=== PATIENT | female | born 1940 | race Caucasian/White ===

== ENCOUNTER 2018-10-26 16:10 | Inpatient (IN) | payer MEDICARE ==
[2018-10-26] MEDS ORDERED: Sodium Chloride 0.9% 1,000 ML IV STA (16:58)
--- NOTE | 2018-10-26 17:16 | ED PDOC ---
HPI: Trauma/Fall - HPI Time Seen by Provider: 10/26/18 16:37 Chief Complaint (Nursing): Trauma Chief Complaint (Provider): Fall History Per: Family History/Exam Limitations: clinical condition (dementia) Onset/Duration Of Symptoms: Unknown Location Of Injury: Right: Shoulder Additional Complaint(s): 78yo female with dementia at baseline, brought to ER by daughter for evaluation after patient was found on the floor next to her bed last night by her . History obtained from daughter as patient is unable to provide information; per daughter patient was down for an unknown amount of time. She states the patient was awake when found on the floor. Currently, she states the patient is complaining of right shoulder pain. Full HPI and ROS limited due to clinical condition. PMD: Dr. Broussard Past Medical History Reviewed: Historical Data, Nursing Documentation, Vital Signs Vital Signs: Last Vital Signs Temp 97.3 F L 10/26/18 16:14 Pulse 74 10/26/18 16:14 Resp 18 10/26/18 16:14 BP 152/80 H 10/26/18 16:14 Pulse Ox 100 10/26/18 16:14 - Medical History PMH: Anxiety, CVA, Dementia, Hypercholesterolemia Denies: HIV, Chronic Kidney Disease - Surgical History Surgical History: No Surg Hx - Family History Family History: States: No Known Family Hx - Immunization History Hx Tetanus Toxoid Vaccination: No Hx Influenza Vaccination: No - Home Medications Home Medications: Ambulatory Orders Medication Instructions Recorded Aspirin [Ecotrin] 81 mg PO HS 10/26/18 Calcium Carbonate/Vitamin D3 1 tab PO BID 10/26/18 [Calcium 500-Vit D3 400 Tablet] Folic Acid 1 mg PO DAILY 10/26/18 Loratadine [Claritin] 10 mg PO HS 10/26/18 Rosuvastatin Calcium [Crestor] 20 mg PO DAILY 10/26/18 Thiamine [Vitamin B1 Tab] 100 mg PO DAILY 10/26/18 metFORMIN [glucOPHAGE] 500 mg PO DAILY 10/26/18 - Allergies Allergies/Adverse Reactions: Allergies Allergy/AdvReac Type Severity Reaction Status Date / Time No Known Allergies Allergy Verified 10/26/18 16:14 Review of Systems Review Of Systems: ROS cannot be obtained secondary to pt's inabilty to answer questions. Musculoskeletal: Positive for: Shoulder Pain (right) Neurological: Positive for: Other (fall) Physical Exam - Reviewed Nursing Documentation Reviewed: Yes Vital Signs Reviewed: Yes - Physical Exam Appears: Positive for: Non-toxic Head Exam: Positive for: ATRAUMATIC, NORMAL INSPECTION, NORMOCEPHALIC Skin: Positive for: Normal Color Eye Exam: Positive for: Normal appearance, EOMI, PERRL Neck: Positive for: Supple Cardiovascular/Chest: Positive for: Regular Rate, Rhythm. Negative for: Murmur, Tachycardia Respiratory: Positive for: Normal Breath Sounds. Negative for: Wheezing, Respiratory Distress Pulses-Radial (L): 2+ Pulses-Radial (R): 2+ Gastrointestinal/Abdominal: Positive for: Soft. Negative for: Guarding, Rebound Back: Negative for: L CVA Tenderness, R CVA Tenderness Extremity: Positive for: Capillary Refill (< 2 seconds). Negative for: Normal ROM (+ limited ROM of right shoulder due to pain), Deformity, Swelling (right shoulder) Neurological/Psych: Positive for: Awake, Alert - Laboratory Results Result Diagrams: 10/27/18 06:31 10/27/18 06:31 - ECG O2 Sat by Pulse Oximetry: 100 (RA) Pulse Ox Interpretation: Normal Medical Decision Making Medical Decision Making: Impression: fall, syncope Differential: head injury, shoulder injury, UTI, cardiac arrhythmia, intra- cranial bleed, r/o rhabdomylosis Plan: -- Labs -- Urinalysis -- CT head w/o contrast -- IV Fluids 1745 CXR FINDINGS: LUNGS: The lungs are well inflated and clear. PLEURA: No pneumothorax or pleural effusion. CARDIOVASCULAR: The heart is normal in size. No aortic atherosclerotic calcifications present. OSSEOUS STRUCTURES: Within normal limits for the patient's age. Status post right shoulder arthroplasty. VISUALIZED UPPER ABDOMEN: Normal. OTHER FINDINGS: None. IMPRESSION: No active pulmonary disease. No acute findings. 1849 CT Head FINDINGS: HEMORRHAGE: No intracranial hemorrhage. BRAIN: Marcial-white matter differentiation is preserved. There is no mass, mass effect or abnormal extra-axial fluid collection. There is no territorial infarction. The midline sagittal structures are normal.There are coarse atherosclerotic calcifications in the cavernous carotid arteries. VENTRICLES: There is mild age-related global parenchymal volume loss and proportionate enlargement of and cortical sulci. Ventricular dilatation is out of proportion to sulcal prominence. CALVARIUM: There is no calvarial fracture or extracranial soft tissue swelling. PARANASAL SINUSES: Predominantly clear. MASTOID AIR CELLS: Predominantly clear. OTHER FINDINGS: None. IMPRESSION: No acute intracranial abnormality. Mild chronic microangiopathic changes and mild age-related global parenchymal volume loss. Ventricular dilatation is out of proportion to sulcal prominence and normal pressure hydrocephalus should be considered. Clinical follow-up is advised. Labs reviewed, patient with elevated CPK [address] Broussard for admission for Syncope and rhabdomyolysis. 20:57 Right shoulder x-ray FINDINGS: BONES: No acute fracture or aggressive appearing osseous lesion. An approximately 3.5 by 0.7 cm exophytic spur is noted along the proximal medial cortex of the humeral shaft. This is thought compatible with an osteochondroma. JOINTS: No dislocation. A reverse total shoulder arthroplasty remains unchanged in position without evidence of a complicating process. The acromioclavicular joint appears adequately maintained. SOFT TISSUES: The soft tissues are unremarkable. IMPRESSION: 1. No acute abnormality evident on examination of the right shoulder. No acute fracture or dislocation. 2. A total reversed right shoulder arthroplasty remains unchanged in position without evidence of a complicating process. 3. 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 This finding is thought to have developed during the interval since the prior examination. Scribe Attestation: Documented by Karen Bear acting as a scribe for Luis Nguyen MD Provider Scribe Attestation: All medical record entries made by the Scribe were at my direction and personally dictated by me. I have reviewed the chart and agree that the record accurately reflects my personal performance of the history, physical exam, medical decision making, and the department course for this patient. I have also personally directed, reviewed, and agree with the discharge instructions and disposition. Disposition - Clinical Impression Clinical Impression: Syncope, Rhabdomyolysis - Patient ED Disposition Is Patient to be Admitted: Yes Discussed With DrGermaine: Jim Broussard Doctor Will See Patient In The: Hospital Counseled Patient/Family Regarding: Studies Performed, Diagnosis - Disposition Disposition Time: 18:00 Condition: FAIR - Pt Status Changed To: Hospital Disposition Of: Observation - POA Present On Arrival: Falls Or Trauma
--- NOTE | 2018-10-26 17:50 | RAD ---
Date of service: 10/26/2018 PROCEDURE: CHEST RADIOGRAPH, 1 VIEW HISTORY: fall COMPARISON: 02/13/2017 FINDINGS: LUNGS: The lungs are well inflated and clear. PLEURA: No pneumothorax or pleural effusion. CARDIOVASCULAR: The heart is normal in size. No aortic atherosclerotic calcifications present. OSSEOUS STRUCTURES: Within normal limits for the patient's age. Status post right shoulder arthroplasty. VISUALIZED UPPER ABDOMEN: Normal. OTHER FINDINGS: None. IMPRESSION: No active pulmonary disease. No acute findings.
[2018-10-26 18:22] LABS: BASO # 0.1 K/uL (0.0-0.2); BASO % 0.8 % (0.0-2.0); EOS % 0.2 % (0.0-4.0); HEMOGLOBIN 12.4 g/dL (12.0-16.0); LYMPH # 1.7 K/uL (1.0-4.3); LYMPH % 15.2 % (20.0-40.0); MEAN CELL VOLUME 76.8 fl (81.0-99.0); MEAN CORPUSCULAR HEMOGLOBIN 25.6 pg (27.0-31.0); MEAN CORPUSCULAR HGB CONC 33.3 g/dL (33.0-37.0); MEAN PLATELET VOLUME 9.5 fl (7.2-11.7); MONO # 0.8 K/uL (0.0-0.8); MONO % 6.8 % (0.0-10.0); NEUT # 8.5 K/uL (1.8-7.0); NRBC % 0.1 % (0.0-0.0); RBC 4.84 Mil/uL (3.80-5.20); RED CELL DISTRIBUTION WIDTH 14.1 % (11.5-14.5); WHITE BLOOD COUNT 11.1 K/uL (4.8-10.8)
[2018-10-26 18:29] LABS: BLOOD UREA NITROGEN 18 mg/dl (7-17); CALCIUM 9.6 mg/dL (8.4-10.2); GFR NON-AFRICAN AMERICAN > 60
--- NOTE | 2018-10-26 18:29 | CT ---
Date of service: 10/26/2018 PROCEDURE: CT HEAD WITHOUT CONTRAST. HISTORY: fall head injury COMPARISON: None available. TECHNIQUE: Axial computed tomography images were obtained through the head/brain without intravenous contrast. Radiation dose: Total exam DLP = 756.51 mGy-cm. This CT exam was performed using one or more of the following dose reduction techniques: Automated exposure control, adjustment of the mA and/or kV according to patient size, and/or use of iterative reconstruction technique. FINDINGS: HEMORRHAGE: No intracranial hemorrhage. BRAIN: Marcial-white matter differentiation is preserved. There is no mass, mass effect or abnormal extra-axial fluid collection. There is no territorial infarction. The midline sagittal structures are normal.There are coarse atherosclerotic calcifications in the cavernous carotid arteries. VENTRICLES: There is mild age-related global parenchymal volume loss and proportionate enlargement of and cortical sulci. Ventricular dilatation is out of proportion to sulcal prominence. CALVARIUM: There is no calvarial fracture or extracranial soft tissue swelling. PARANASAL SINUSES: Predominantly clear. MASTOID AIR CELLS: Predominantly clear. OTHER FINDINGS: None. IMPRESSION: No acute intracranial abnormality. Mild chronic microangiopathic changes and mild age-related global parenchymal volume loss. Ventricular dilatation is out of proportion to sulcal prominence and normal pressure hydrocephalus should be considered. Clinical follow-up is advised.
[2018-10-26 21:06] LABS: ALB/GLOB RATIO 1.2 (1.0-2.1); ALBUMIN 4.3 g/dL (3.5-5.0); BILIRUBIN,DIRECT 0.2 mg/ml (0.0-0.4)
[2018-10-26 21:33] LABS: SQUAMOUS EPITHIAL 3 /hpf (0-5); URINE BACTERIA RARE (<OCC); URINE BILIRUBIN NEGATIVE (NEGATIVE); URINE BLOOD NEGATIVE (NEGATIVE); URINE CLARITY CLEAR (Clear); URINE COLOR YELLOW (YELLOW); URINE GLUCOSE (UA) NEG (NEGATIVE); URINE LEUKOCYTE ESTERASE TRACE Leu/uL (Negative); URINE PROTEIN NEGATIVE (NEGATIVE); URINE UROBILINOGEN 0.2-1.0 mg/dL (0.2-1.0)
[2018-10-26 23:10] VITALS: BMI 27.6
[2018-10-27 06:41] LABS: BASO # 0.1 K/uL (0.0-0.2); BASO % 1.2 % (0.0-2.0); EOS % 0.5 % (0.0-4.0); HEMOGLOBIN 11.5 g/dL (12.0-16.0); LYMPH # 1.8 K/uL (1.0-4.3); LYMPH % 19.2 % (20.0-40.0); MEAN CELL VOLUME 77.3 fl (81.0-99.0); MEAN CORPUSCULAR HEMOGLOBIN 25.5 pg (27.0-31.0); MEAN PLATELET VOLUME 9.3 fl (7.2-11.7); MONO # 0.7 K/uL (0.0-0.8); NEUT # 6.8 K/uL (1.8-7.0); NEUT % 72.1 % (50.0-75.0); RBC 4.49 Mil/uL (3.80-5.20); RED CELL DISTRIBUTION WIDTH 14.1 % (11.5-14.5); WHITE BLOOD COUNT 9.4 K/uL (4.8-10.8)
[2018-10-27 06:50] LABS: BLOOD UREA NITROGEN 20 mg/dl (7-17); CALCIUM 9.3 mg/dL (8.4-10.2); GFR NON-AFRICAN AMERICAN > 60
[2018-10-27] MEDS: Cholecalciferol 400 Intl Units Tab PO SCH ×2 (08:52→17:05)
[2018-10-27] MEDS: Enoxaparin 40 mg Syringe SC SCH (08:53)
--- NOTE | 2018-10-27 11:10 | CARD ---
APPROVED REPORT Date of service: 10/26/2018 EKG Measurement Heart [id number] <Conclusion> Normal sinus rhythm Normal ECG
--- NOTE | 2018-10-27 12:55 | CP.PCM.HP ---
History of Present Illness - History of Present Illness History of Present Illness: 78yo female with dementia at baseline, brought to ER by daughter for evaluation after patient was found on the floor next to her bed last night by her . As per daughter patient was down for an unknown amount of time. She states the patient was awake when found on the floor. Currently, she states the patient is complaining of right shoulder pain. Patient presented with new findings that suggest possibility of spinal cord pathology or new onset of ischemic cerebral condition. She has new onset of severe lower limb weakness. MRI and neuro consult pending. She is more confuse than her usual mental status. Present on Admission - Present on Admission Any Indicators Present on Admission: No Review of Systems - Review of Systems Systems not reviewed;Unavailable: Altered Mental Status - Constitutional Constitutional: Weakness - EENT Eyes: As Per HPI - Cardiovascular Cardiovascular: As Per HPI - Respiratory Respiratory: As Per HPI - Gastrointestinal Gastrointestinal: As Per HPI - Musculoskeletal Musculoskeletal: Abnormal Gait, Muscle Weakness, Myalgias - Integumentary Integumentary: As Per HPI - Neurological Neurological: Abnormal Gait, Confusion, Dizziness, Weakness - Psychiatric Psychiatric: Depression - Endocrine Endocrine: As Per HPI Past Patient History - Infectious Disease Hx of Infectious Diseases: None - Tetanus Immunizations Tetanus Immunization: Unknown - Past Medical History & Family History Past Medical History?: Yes - Past Social History Smoking Status: Never Smoked - CARDIAC Hx Hypercholesterolemia: Yes - PULMONARY Hx Respiratory Disorders: No - NEUROLOGICAL Hx Dementia: Yes - HEENT Hx HEENT Problems: No - RENAL Hx Chronic Kidney Disease: No - ENDOCRINE/METABOLIC Hx Endocrine Disorders: Yes Hx Diabetes Mellitus Type 2: Yes - HEMATOLOGICAL/ONCOLOGICAL Hx Human Immunodeficiency Virus (HIV): No - INTEGUMENTARY Hx Dermatological Problems: No - MUSCULOSKELETAL/RHEUMATOLOGICAL Hx Musculoskeletal Disorders: No Hx Falls: Yes - GASTROINTESTINAL Hx Gastrointestinal Disorders: No - GENITOURINARY/GYNECOLOGICAL Hx Genitourinary Disorders: No - PSYCHIATRIC Hx Anxiety: Yes - SURGICAL HISTORY Hx Surgeries: Yes Hx Joint Replacement: Yes (right Total shoulder replacement) Hx Orthopedic Surgery: Yes (CARPAL TUNNEL) Other/Comment: COLONOSCOPY - ANESTHESIA Hx Anesthesia: Yes Hx Anesthesia Reactions: No Hx Malignant Hyperthermia: No Meds Allergies/Adverse Reactions: Allergies Allergy/AdvReac Type Severity Reaction Status Date / Time No Known Allergies Allergy Verified 10/26/18 16:14 Physical Exam - Constitutional Appears: Confused, Chronically Ill - Head Exam Head Exam: ATRAUMATIC, NORMAL INSPECTION, NORMOCEPHALIC - Eye Exam Eye Exam: Normal appearance - ENT Exam ENT Exam: Mucous Membranes Moist - Neck Exam Neck exam: Positive for: Full Rom - Respiratory Exam Respiratory Exam: Decreased Breath Sounds - Cardiovascular Exam Cardiovascular Exam: REGULAR RHYTHM, +S1, +S2 - GI/Abdominal Exam GI & Abdominal Exam: Normal Bowel Sounds - Extremities Exam Extremities exam: Positive for: pedal edema - Neurological Exam Neurological exam: Abnormal Gait, Altered, Motor Sensory Deficit - Psychiatric Exam Psychiatric exam: Depressed - Skin Skin Exam: Pallor Results - Vital Signs Recent Vital Signs: Last Vital Signs Temp 98.8 F 10/27/18 12:04 Pulse 105 H 10/27/18 12:04 Resp 18 10/27/18 12:04 BP 113/70 10/27/18 12:04 Pulse Ox 96 10/27/18 12:04 - Labs Result Diagrams: 10/27/18 06:31 10/27/18 06:31 Labs: Laboratory Results - last 24 hr 10/26/18 10/26/18 10/26/18 18:08 18:08 20:28 WBC 11.1 H D RBC 4.84 Hgb 12.4 Hct 37.2 MCV 76.8 L MCH 25.6 L MCHC 33.3 RDW 14.1 Plt Count 203 MPV 9.5 Neut % (Auto) 77.0 H Lymph % (Auto) 15.2 L [place] % (Auto) 6.8 Eos % (Auto) 0.2 Baso % (Auto) 0.8 Neut # (Auto) 8.5 H Lymph # (Auto) 1.7 [place]cock # (Auto) 0.8 Eos # (Auto) 0.0 Baso # (Auto) 0.1 Sodium 137 Potassium 3.9 Chloride 100 Carbon Dioxide 26 Anion Gap 15 BUN 18 H Creatinine 0.7 Est GFR ( Amer) > 60 Est GFR (Non-Af Amer) > 60 Random Glucose 123 H Hemoglobin A1c Lactic Acid Calcium 9.6 Total Bilirubin Direct Bilirubin AST ALT Alkaline Phosphatase Ammonia Total Creatine Kinase 890 H Troponin I < 0.0120 Total Protein Albumin Globulin Albumin/Globulin Ratio TSH 3rd Generation 0.90 Urine Color Urine Clarity Urine pH Ur Specific [place] Urine Protein Urine Glucose (UA) Urine Ketones Urine Blood Urine Nitrate Urine Bilirubin Urine Urobilinogen Ur Leukocyte Esterase Urine RBC (Auto) Urine Microscopic WBC Ur Squamous Epith Cells Urine Bacteria 10/26/18 10/26/18 10/26/18 20:41 20:41 20:41 WBC RBC Hgb Hct MCV MCH MCHC RDW Plt Count MPV Neut % (Auto) Lymph % (Auto) [place] % (Auto) Eos % (Auto) Baso % (Auto) Neut # (Auto) Lymph # (Auto) [place] # (Auto) Eos # (Auto) Baso # (Auto) Sodium Potassium Chloride Carbon Dioxide Anion Gap BUN Creatinine Est GFR ( Amer) Est GFR (Non-Af Amer) Random Glucose Hemoglobin A1c 7.0 H Lactic Acid 0.8 Calcium Total Bilirubin Direct Bilirubin AST ALT Alkaline Phosphatase Ammonia < 9 L Total Creatine Kinase Troponin I Total Protein Albumin Globulin Albumin/Globulin Ratio TSH 3rd Generation Urine Color Urine Clarity Urine pH Ur Specific [place] Urine Protein Urine Glucose (UA) Urine Ketones Urine Blood Urine Nitrate Urine Bilirubin Urine Urobilinogen Ur Leukocyte Esterase Urine RBC (Auto) Urine Microscopic WBC Ur Squamous Epith Cells Urine Bacteria 10/26/18 10/26/18 10/27/18 20:41 21:20 06:31 WBC 9.4 RBC 4.49 Hgb 11.5 L Hct 34.7 MCV 77.3 L MCH 25.5 L MCHC 33.0 RDW 14.1 Plt Count 189 MPV 9.3 Neut % (Auto) 72.1 Lymph % (Auto) 19.2 L [place] % (Auto) 7.0 Eos % (Auto) 0.5 Baso % (Auto) 1.2 Neut # (Auto) 6.8 Lymph # (Auto) 1.8 [place] # (Auto) 0.7 Eos # (Auto) 0.0 Baso # (Auto) 0.1 Sodium Potassium Chloride Carbon Dioxide Anion Gap BUN Creatinine Est GFR ( Amer) Est GFR (Non-Af Amer) Random Glucose Hemoglobin A1c Lactic Acid Calcium Total Bilirubin 0.6 Direct Bilirubin 0.2 AST 59 H ALT 41 Alkaline Phosphatase 115 Ammonia Total Creatine Kinase Troponin I Total Protein 8.0 Albumin 4.3 Globulin 3.7 Albumin/Globulin Ratio 1.2 TSH 3rd Generation Urine Color Yellow Urine Clarity Clear Urine pH 6.0 Ur Specific [place] 1.014 Urine Protein Negative Urine Glucose (UA) Neg Urine Ketones Trace Urine Blood Negative Urine Nitrate Negative Urine Bilirubin Negative Urine Urobilinogen 0.2-1.0 Ur Leukocyte Esterase Trace Urine RBC (Auto) 1 Urine Microscopic WBC 4 Ur Squamous Epith Cells 3 Urine Bacteria Rare 10/27/18 06:31 WBC RBC Hgb Hct MCV MCH MCHC RDW Plt Count MPV Neut % (Auto) Lymph % (Auto) [place] % (Auto) Eos % (Auto) Baso % (Auto) Neut # (Auto) Lymph # (Auto) [place] # (Auto) Eos # (Auto) Baso # (Auto) Sodium 137 Potassium 3.6 Chloride 103 Carbon Dioxide 24 Anion Gap 14 BUN 20 H Creatinine 0.9 Est GFR ( Amer) > 60 Est GFR (Non-Af Amer) > 60 Random Glucose 117 H Hemoglobin A1c Lactic Acid Calcium 9.3 Total Bilirubin Direct Bilirubin AST ALT Alkaline Phosphatase Ammonia Total Creatine Kinase 588 H Troponin I Total Protein Albumin Globulin Albumin/Globulin Ratio TSH 3rd Generation Urine Color Urine Clarity Urine pH Ur Specific [place] Urine Protein Urine Glucose (UA) Urine Ketones Urine Blood Urine Nitrate Urine Bilirubin Urine Urobilinogen Ur Leukocyte Esterase Urine RBC (Auto) Urine Microscopic WBC Ur Squamous Epith Cells Urine Bacteria Assessment & Plan (1) Dementia Status: Acute (2) Neuropathy Status: Acute (3) Rhabdomyolysis Status: Acute (4) Syncope Status: Acute (5) S/P shoulder replacement Status: Acute (6) Neuropathy Status: Acute
--- NOTE | 2018-10-27 13:07 | US ---
Date of service: 10/26/2018 PROCEDURE: Duplex ultrasound of the carotid and vertebral arteries. HISTORY: syncope COMPARISON: 07/03/2016. TECHNIQUE: Grayscale and duplex Doppler evaluation of the cervical carotid and vertebral arteries were performed. The common carotid, carotid bifurcations and cervical ICA and proximal ECA were evaluated. The vertebral arteries were evaluated for gross patency and direction. FINDINGS: RIGHT CAROTID ARTERIES: Common Carotid Artery: Maximal flow velocity of 69.3 cm/s. Carotid Bifurcation: Intimal thickening is present Internal Carotid Artery:Heterogeneous plaque formation. Maximal flow velocity of 96.1 cm/s. External Carotid Artery (proximal branches): Maximal flow velocity of 116.2 cm/s. ICA/CCA Ratio: 1.2 LEFT CAROTID ARTERIES: Common Carotid Artery: Maximal flow velocity of 07.3 cm/s. Carotid Bifurcation: Intimal thickening is present Internal Carotid Artery:Heterogeneous plaque formation. Maximal flow velocity of 103.1 cm/s. External Carotid Artery (proximal branches): Maximal flow velocity of 92.2 cm/s. ICA/CCA Ratio: 1.2 VERTEBRAL ARTERIES: Right Vertebral Artery: Patent. Antegrade flow. Left Vertebral Artery: Patent. Antegrade flow. OTHER FINDINGS: Atherosclerotic calcification present. IMPRESSION: Right ICA degree of stenosis: Less than 50% Left ICA degree of stenosis: Less than 50% No significant interval change compared to the prior examination(s). Concordant findings (preliminary report) provided by [facility]. Reference Internal Carotid Artery (ICA) Peak Systolic Velocity (PSV) for above: 1. Less than 50% stenosis less than 125 cm/s peak systolic velocity 2. 50-69% stenosis 125-230cm/s peak systolic velocity 3. Greater than 70% but less than near occlusion greater than 230 cm/s peak systolic velocity
--- NOTE | 2018-10-27 13:24 | RAD ---
Date of service: 10/26/2018 PROCEDURE: Radiographs of the Right Shoulder HISTORY: right shoulder pain COMPARISON: 10/23/2015. TECHNIQUE: 3 views obtained. FINDINGS: BONES: No acute findings. Total right shoulder arthroplasty in stable position, alignment and configuration. JOINTS: Normal. Glenohumeral and acromioclavicular joints preserved. No osteoarthritis. SOFT TISSUES: Normal. OTHER FINDINGS: None. IMPRESSION: No acute or significant findings related to/ accounting for the clinical presentation. Additional benign and/or incidental findings described above. No significant interval change compared to the prior examination(s).
--- NOTE | 2018-10-27 14:16 | CT ---
Date of service: 10/27/2018 PROCEDURE: CT Lumbar Spine without contrast HISTORY: Lower ext weakness COMPARISON: None available. TECHNIQUE: Axial computed tomography images were obtained of the lumbar spine without the use of intravenous contrast. Coronal and sagittal reformatted images were created and reviewed. Radiation dose: Total exam DLP = 911.19 mGy-cm. This CT exam was performed using one or more of the following dose reduction techniques: Automated exposure control, adjustment of the mA and/or kV according to patient size, and/or use of iterative reconstruction technique. FINDINGS: VERTEBRAE: Curvature of the spine convex to the right. There are no vertebral compression fractures. DISCS/SPINAL CANAL/NEURAL FORAMINA: L1-2: Disc degeneration with anterior osteophytes L2-3: Disc degeneration with anterior osteophytes. L3-4: There is severe disc degeneration at L3-4. Foraminal stenosis left greater than right. L4-5: Large disc bulge right greater than left with osteophyte formation. Right-sided foraminal stenosis. Mild central stenosis L5-S1: Facet arthropathy with lateral recess stenosis bilaterally. Right-sided marginal osteophyte with foraminal stenosis PARASPINAL SOFT TISSUES: Unremarkable. OTHER FINDINGS: None. IMPRESSION: Multilevel disc degeneration detailed above.
--- NOTE | 2018-10-27 15:48 | CP.PCM.CON ---
History of Present Illness - History of Present Illness History of Present Illness: Neurology Consultation Note: Consult requested by Dr. Broussard Mrs. Mayberry is a 78-year-old woman with a past medical history of baseline dementia, DM, HLD, who was brought in to the ED after being found on the floor next to the bed. It was not known for how long she was down. She was awake and alert when found. Labs showed elevated WBC and elevated CK levels. CT head was concerning for hydrocephalus. Her daughter was at bedside and provided some history. According to the daughter, the patient is very depressed, does not do anything and is in bed all day. Two days ago, the patient fell as she was attempting to walk, and could not get up on her own. Since then, she has been even more sedentary. She complains of back pain and leg pain when she is moved. CT of the lumbar spine showed multi-level disc degeneration, but no acute findings. Review of Systems - Review of Systems Systems not reviewed;Unavailable: Altered Mental Status Past Patient History - Infectious Disease Hx of Infectious Diseases: None - Tetanus Immunizations Tetanus Immunization: Unknown - Past Medical History & Family History Past Medical History?: Yes - Past Social History Smoking Status: Never Smoked - CARDIAC Hx Hypercholesterolemia: Yes - PULMONARY Hx Respiratory Disorders: No - NEUROLOGICAL Hx Dementia: Yes - HEENT Hx HEENT Problems: No - RENAL Hx Chronic Kidney Disease: No - ENDOCRINE/METABOLIC Hx Endocrine Disorders: Yes Hx Diabetes Mellitus Type 2: Yes - HEMATOLOGICAL/ONCOLOGICAL Hx Human Immunodeficiency Virus (HIV): No - INTEGUMENTARY Hx Dermatological Problems: No - MUSCULOSKELETAL/RHEUMATOLOGICAL Hx Musculoskeletal Disorders: No Hx Falls: Yes - GASTROINTESTINAL Hx Gastrointestinal Disorders: No - GENITOURINARY/GYNECOLOGICAL Hx Genitourinary Disorders: No - PSYCHIATRIC Hx Anxiety: Yes - SURGICAL HISTORY Hx Surgeries: Yes Hx Joint Replacement: Yes (right Total shoulder replacement) Hx Orthopedic Surgery: Yes (CARPAL TUNNEL) Other/Comment: COLONOSCOPY - ANESTHESIA Hx Anesthesia: Yes Hx Anesthesia Reactions: No Hx Malignant Hyperthermia: No Meds Allergies/Adverse Reactions: Allergies Allergy/AdvReac Type Severity Reaction Status Date / Time No Known Allergies Allergy Verified 10/26/18 16:14 - Medications Medications: Current Medications Aspirin (Ecotrin) 81 mg PO HS [facility] Last Admin: 10/26/18 23:03 Dose: 81 mg Atorvastatin Calcium (Lipitor) 40 mg PO DAILY [facility] Last Admin: 10/27/18 08:52 Dose: 40 mg Calcium Carbonate (Oscal) 500 mg PO BID [facility] Last Admin: 10/27/18 08:51 Dose: 500 mg Enoxaparin Sodium (Lovenox) 40 mg SC DAILY [facility]; Protocol Last Admin: 10/27/18 08:53 Dose: 40 mg Folic Acid (Folic Acid) 1 mg PO DAILY [facility] Last Admin: 10/27/18 08:51 Dose: 1 mg Ceftriaxone Sodium 1 gm/ (Sodium Chloride) 100 mls @ 100 mls/hr IVPB DAILY [facility]; Protocol Last Admin: 10/27/18 08:53 Dose: 100 mls/hr Loratadine (Claritin) 10 mg PO HS [facility] Last Admin: 10/26/18 23:04 Dose: 10 mg Metformin HCl (Glucophage) 500 mg PO DAILYWM [facility] Last Admin: 10/27/18 08:52 Dose: 500 mg Thiamine HCl (Vitamin B1 Tab) 100 mg PO DAILY [facility] Last Admin: 10/27/18 08:51 Dose: 100 mg Vitamin D (Vitamin D 400 Intl Units Tab) 400 intlu PO BID [facility] Last Admin: 10/27/18 08:52 Dose: 400 intlu Physical Exam - Constitutional Appears: Well - Head Exam Head Exam: ATRAUMATIC, NORMAL INSPECTION, NORMOCEPHALIC - Eye Exam Eye Exam: EOMI, Normal appearance, PERRL Pupil Exam: NORMAL ACCOMODATION, PERRL - ENT Exam ENT Exam: Mucous Membranes Moist, Normal Exam - Neck Exam Neck exam: Positive for: Normal Inspection - Respiratory Exam Respiratory Exam: Clear to Auscultation Bilateral, NORMAL BREATHING PATTERN - Cardiovascular Exam Cardiovascular Exam: REGULAR RHYTHM, +S1, +S2 - GI/Abdominal Exam GI & Abdominal Exam: Normal Bowel Sounds, Soft. absent: Tenderness - Extremities Exam Extremities exam: Positive for: normal inspection - Back Exam Back exam: NORMAL INSPECTION - Neurological Exam Neurological exam: Altered, CN II-XII Intact, Reflexes Normal Additional comments: Confused, does not know date, time, or place. She does not know her age. She knows her name. Memory, attention and general knowledge are impaired. Upper extremities: left arm is 4/5 in strength proximally and distally, right arm is 3/5 distally and 2/5 proximally. Lower extremities: bilaterally weak with 2-3/5 in strength proximally and 3/5 in strength distally. Gait cannot be tested. Coordination shows some ataxia on the left, the right cannot be tested. She has tenderness, pain and discoloration of the left ankle. - Psychiatric Exam Psychiatric exam: Normal Affect, Normal Mood - Skin Skin Exam: Dry, Intact, Normal Color, Warm Results - Vital Signs Recent Vital Signs: Last Vital Signs Temp 98.8 F 10/27/18 12:04 Pulse 105 H 10/27/18 12:04 Resp 18 10/27/18 12:04 BP 113/70 10/27/18 12:04 Pulse Ox 96 10/27/18 12:04 - Labs Result Diagrams: 10/27/18 06:31 10/27/18 06:31 Labs: Laboratory Results - last 24 hr 10/26/18 10/26/18 10/26/18 18:08 18:08 20:28 WBC 11.1 H D RBC 4.84 Hgb 12.4 Hct 37.2 MCV 76.8 L MCH 25.6 L MCHC 33.3 RDW 14.1 Plt Count 203 MPV 9.5 Neut % (Auto) 77.0 H Lymph % (Auto) 15.2 L Rice % (Auto) 6.8 Eos % (Auto) 0.2 Baso % (Auto) 0.8 Neut # (Auto) 8.5 H Lymph # (Auto) 1.7 Rice # (Auto) 0.8 Eos # (Auto) 0.0 Baso # (Auto) 0.1 ESR Sodium 137 Potassium 3.9 Chloride 100 Carbon Dioxide 26 Anion Gap 15 BUN 18 H Creatinine 0.7 Est GFR ( Amer) > 60 Est GFR (Non-Af Amer) > 60 Random Glucose 123 H Hemoglobin A1c Lactic Acid Calcium 9.6 Total Bilirubin Direct Bilirubin AST ALT Alkaline Phosphatase Ammonia Total Creatine Kinase 890 H Troponin I < 0.0120 Total Protein Albumin Globulin Albumin/Globulin Ratio Vitamin B12 TSH 3rd Generation 0.90 Urine Color Urine Clarity Urine pH Ur Specific [place] Urine Protein Urine Glucose (UA) Urine Ketones Urine Blood Urine Nitrate Urine Bilirubin Urine Urobilinogen Ur Leukocyte Esterase Urine RBC (Auto) Urine Microscopic WBC Ur Squamous Epith Cells Urine Bacteria 10/26/18 10/26/18 10/26/18 20:41 20:41 20:41 WBC RBC Hgb Hct MCV MCH MCHC RDW Plt Count MPV Neut % (Auto) Lymph % (Auto) Rice % (Auto) Eos % (Auto) Baso % (Auto) Neut # (Auto) Lymph # (Auto) Rice # (Auto) Eos # (Auto) Baso # (Auto) ESR Sodium Potassium Chloride Carbon Dioxide Anion Gap BUN Creatinine Est GFR ( Amer) Est GFR (Non-Af Amer) Random Glucose Hemoglobin A1c 7.0 H Lactic Acid 0.8 Calcium Total Bilirubin Direct Bilirubin AST ALT Alkaline Phosphatase Ammonia < 9 L Total Creatine Kinase Troponin I Total Protein Albumin Globulin Albumin/Globulin Ratio Vitamin B12 TSH 3rd Generation Urine Color Urine Clarity Urine pH Ur Specific [place] Urine Protein Urine Glucose (UA) Urine Ketones Urine Blood Urine Nitrate Urine Bilirubin Urine Urobilinogen Ur Leukocyte Esterase Urine RBC (Auto) Urine Microscopic WBC Ur Squamous Epith Cells Urine Bacteria 10/26/18 10/26/18 10/27/18 20:41 21:20 06:31 WBC 9.4 RBC 4.49 Hgb 11.5 L Hct 34.7 MCV 77.3 L MCH 25.5 L MCHC 33.0 RDW 14.1 Plt Count 189 MPV 9.3 Neut % (Auto) 72.1 Lymph % (Auto) 19.2 L Rice % (Auto) 7.0 Eos % (Auto) 0.5 Baso % (Auto) 1.2 Neut # (Auto) 6.8 Lymph # (Auto) 1.8 Rice # (Auto) 0.7 Eos # (Auto) 0.0 Baso # (Auto) 0.1 ESR Sodium Potassium Chloride Carbon Dioxide Anion Gap BUN Creatinine Est GFR ( Amer) Est GFR (Non-Af Amer) Random Glucose Hemoglobin A1c Lactic Acid Calcium Total Bilirubin 0.6 Direct Bilirubin 0.2 AST 59 H ALT 41 Alkaline Phosphatase 115 Ammonia Total Creatine Kinase Troponin I Total Protein 8.0 Albumin 4.3 Globulin 3.7 Albumin/Globulin Ratio 1.2 Vitamin B12 TSH 3rd Generation Urine Color Yellow Urine Clarity Clear Urine pH 6.0 Ur Specific [place] 1.014 Urine Protein Negative Urine Glucose (UA) Neg Urine Ketones Trace Urine Blood Negative Urine Nitrate Negative Urine Bilirubin Negative Urine Urobilinogen 0.2-1.0 Ur Leukocyte Esterase Trace Urine RBC (Auto) 1 Urine Microscopic WBC 4 Ur Squamous Epith Cells 3 Urine Bacteria Rare 10/27/18 10/27/18 10/27/18 06:31 12:00 12:00 WBC RBC Hgb Hct MCV MCH MCHC RDW Plt Count MPV Neut % (Auto) Lymph % (Auto) Rice % (Auto) Eos % (Auto) Baso % (Auto) Neut # (Auto) Lymph # (Auto) Rice # (Auto) Eos # (Auto) Baso # (Auto) ESR 64 H Sodium 137 Potassium 3.6 Chloride 103 Carbon Dioxide 24 Anion Gap 14 BUN 20 H Creatinine 0.9 Est GFR ( Amer) > 60 Est GFR (Non-Af Amer) > 60 Random Glucose 117 H Hemoglobin A1c Lactic Acid Calcium 9.3 Total Bilirubin Direct Bilirubin AST ALT Alkaline Phosphatase Ammonia Total Creatine Kinase 588 H Troponin I Total Protein Albumin Globulin Albumin/Globulin Ratio Vitamin B12 327 TSH 3rd Generation Urine Color Urine Clarity Urine pH Ur Specific [place] Urine Protein Urine Glucose (UA) Urine Ketones Urine Blood Urine Nitrate Urine Bilirubin Urine Urobilinogen Ur Leukocyte Esterase Urine RBC (Auto) Urine Microscopic WBC Ur Squamous Epith Cells Urine Bacteria Assessment & Plan (1) Normal pressure hydrocephalus Assessment and Plan: This may be the likely cause of her incontinence, gait difficulty and dementia. I recommend consultation with neurosurgery for further evaluation of possible shunt. MRI of the brain without contrast will be done and will help determine the etiology. Continue supportive care. Will follow MRI of the lumbar spine as well for a source of her weakness. Status: Acute (2) Left ankle injury Assessment and Plan: I recommend obtaining an X-ray to rule out fracture. Nurse was informed. Status: Acute
[2018-10-27 17:31] LABS: FOLATE > 20.0 ng/mL
--- NOTE | 2018-10-27 17:50 | RAD ---
Date of service: 10/27/2018 PROCEDURE: Left Ankle Radiographs. HISTORY: pain sp fall COMPARISON: None available. TECHNIQUE: 3 views obtained. FINDINGS: BONES: Dorsal talar beaking/spurring. No fracture or lytic lesion. Inferior calcaneal spurring present Generalized osteopenia. Screw seen on lateral view over metatarsal inferred as 1st metatarsal. Probable os peroneum JOINTS: Mild midfoot osteoarthrosis.. Ankle mortise maintained. Talar dome intact SOFT TISSUES: Septation S subcutaneous opacities compatible with varicose veins. These especially prominent along the medial portion of the left lower leg. Soft tissue swelling especially along the anterior tibiotalar junction. OTHER FINDINGS: None. IMPRESSION: Generalized osteopenia. No fracture or lytic lesion. Varicosities An anterior tibiotalar level soft tissue swelling. Apologies extended for any inconvenience that may have occurred.
[2018-10-28 06:55] LABS: HEMOGLOBIN 11.2 g/dL (12.0-16.0); MEAN CELL VOLUME 77.3 fl (81.0-99.0); MEAN CORPUSCULAR HEMOGLOBIN 25.8 pg (27.0-31.0); MEAN CORPUSCULAR HGB CONC 33.5 g/dL (33.0-37.0); RBC 4.32 Mil/uL (3.80-5.20); WHITE BLOOD COUNT 8.6 K/uL (4.8-10.8)
[2018-10-28 07:01] LABS: BLOOD UREA NITROGEN 23 mg/dl (7-17); CALCIUM 9.4 mg/dL (8.4-10.2); GFR NON-AFRICAN AMERICAN > 60
[2018-10-28 07:04] LABS: CK-MB 2.98 ng/mL (0.0-3.38)
[2018-10-28] MEDS ORDERED: Potassium Chloride 20 mEq ER Tab PO ONE (08:08)
[2018-10-28] MEDS: Enoxaparin 40 mg Syringe SC SCH (08:47)
[2018-10-28] MEDS: Cholecalciferol 400 Intl Units Tab PO SCH ×2 (08:48→16:44)
--- NOTE | 2018-10-28 11:33 | CP.PCM.PN ---
Subjective - Date & Time of Evaluation Date of Evaluation: 10/28/18 Time of Evaluation: 11:31 - Subjective Subjective: Neuro Follow-Up Note: Mrs. Mayberry was evaluated this morning at bedside. No family present. Pt states that she is feeling better and offers no new complaints. Left ankle still swollen, however, pt denies pain to the area. Still confused, though, pleasant and engages in most of the exam. Currently denies h/a, dizziness, visual changes, chest pain, palpitations, sob, cough ,abd pain, n/v/d, chills, paresthesias. Objective - Vital Signs/Intake and Output Vital Signs (last 24 hours): Temp Pulse Resp BP Pulse Ox 98 F 80 18 131/74 96 10/28/18 09:00 10/28/18 09:00 10/28/18 09:00 10/28/18 09:00 10/28/18 09:00 - Medications Medications: Current Medications Aspirin (Ecotrin) 81 mg PO HS [facility] Last Admin: 10/27/18 21:49 Dose: 81 mg Atorvastatin Calcium (Lipitor) 40 mg PO DAILY [facility] Last Admin: 10/28/18 08:47 Dose: 40 mg Calcium Carbonate (Oscal) 500 mg PO BID [facility] Last Admin: 10/28/18 08:47 Dose: 500 mg Cyanocobalamin (Vitamin B12 1000 Mcg Tab) 1,000 mcg PO DAILY [facility] Last Admin: 10/28/18 10:23 Dose: 1,000 mcg Enoxaparin Sodium (Lovenox) 40 mg SC DAILY [facility]; Protocol Last Admin: 10/28/18 08:47 Dose: 40 mg Folic Acid (Folic Acid) 1 mg PO DAILY [facility] Last Admin: 10/28/18 08:46 Dose: 1 mg Ceftriaxone Sodium 1 gm/ (Sodium Chloride) 100 mls @ 100 mls/hr IVPB DAILY [facility]; Protocol Last Admin: 10/28/18 08:46 Dose: 100 mls/hr Loratadine (Claritin) 10 mg PO HS [facility] Last Admin: 10/27/18 21:50 Dose: 10 mg Metformin HCl (Glucophage) 500 mg PO DAILYWM [facility] Last Admin: 10/28/18 08:47 Dose: 500 mg Thiamine HCl (Vitamin B1 Tab) 100 mg PO DAILY [facility] Last Admin: 10/28/18 08:48 Dose: 100 mg Vitamin D (Vitamin D 400 Intl Units Tab) 400 intlu PO BID [facility] Last Admin: 10/28/18 08:48 Dose: 400 intlu - Labs Labs: 10/28/18 05:15 10/28/18 05:15 - Constitutional Appears: Well, No Acute Distress, Confused (pleasant, follows commands) - Head Exam Head Exam: NORMOCEPHALIC - Eye Exam Eye Exam: EOMI, Normal appearance, PERRL Pupil Exam: NORMAL ACCOMODATION, PERRL - ENT Exam ENT Exam: Mucous Membranes Moist - Neck Exam Neck Exam: Full ROM, Normal Inspection - Respiratory Exam Respiratory Exam: NORMAL BREATHING PATTERN - Cardiovascular Exam Cardiovascular Exam: REGULAR RHYTHM - Extremities Exam Extremities Exam: absent: Full ROM, Normal Inspection Additional comments: Left ankle still swollen and slightly discolored. Attempted to assess proximal BUE strength, though pt refused. Distal strength BUE 4/5. Able to raise BLE without difficulty, some weakness noted b/l - Neurological Exam Neurological Exam: Altered, Awake, CN II-XII Intact, Reflexes Normal Neuro motor strength exam: Left Lower Extremity: 3 (plantar flexion 3/5), Right Lower Extremity: 3 (plantar flexion 3/5) Additional comments: Awake, confused, pleasant; knows her name and age; she does not know that she is in the hospital nor the current year. Speech is clear. Attempted to assess proximal BUE strength, though pt refused. Distal strength B UE 4/5. Able to raise BLE without difficulty, some weakness noted b/l. No tremors or abnormal movements. Unable to assess for ataxia 2/2 pt refused. Gait not assessed---PT note reviewed. - Psychiatric Exam Psychiatric exam: Normal Affect, Normal Mood Additional comments: pleasantly confused - Skin Skin Exam: Dry, Intact, Warm Additional comments: swelling to left ankle w some discoloration Assessment and Plan (1) Normal pressure hydrocephalus Assessment & Plan: Imaging reviewed: -CT Head (10/26/18): -CTA Head and Neck (10/26/18): -MRI Brain ordered, pending--will f/u once completed. -Neurosurgery consulted--f/u with recommendations. -Lumbar Spine MRI ordered, pending--will f/u once completed. -Continue PT for conditioning and strengthening. -Continue supportive care. -Notify neuro of any acute changes in condition. Status: Acute (2) Left ankle injury Assessment & Plan: Xray shows no fracture. Minnie Tello DNP, [employer] d/w Dr. Gentile Status: Acute
--- NOTE | 2018-10-28 15:05 | US ---
Date of service: 10/28/2018 PROCEDURE: Bilateral lower extremity venous duplex Doppler. HISTORY: r/o dvt COMPARISON: None available. TECHNIQUE: Bilateral common femoral, superficial femoral, popliteal and posterior tibial veins were evaluated. Flow was assessed with color Doppler, compressibility, assessment of phasic flow and augmentation response. FINDINGS: COMMON FEMORAL VEIN: Right CFV: Unremarkable. Left CFV: Unremarkable. SUPERFICIAL FEMORAL VEIN: Right SFV: Unremarkable. Left SFV: Unremarkable. POPLITEAL VEIN: Right Popliteal: Unremarkable. Left Popliteal: Unremarkable. POSTERIOR TIBIAL VEIN: Right PTV: Unremarkable. Left PTV: Unremarkable. OTHER FINDINGS: None. IMPRESSION: No evidence of deep venous thrombosis.
--- NOTE | 2018-10-28 16:52 | CP.PCM.PN ---
Subjective - Date & Time of Evaluation Date of Evaluation: 10/28/18 Time of Evaluation: 16:53 - Subjective Subjective: No significant changes, confuse, wait for neurosurgery consult. Objective - Vital Signs/Intake and Output Vital Signs (last 24 hours): Temp Pulse Resp BP Pulse Ox 97.8 F 79 18 132/82 95 10/28/18 16:20 10/28/18 16:20 10/28/18 16:20 10/28/18 16:20 10/28/18 16:20 - Medications Medications: Current Medications Aspirin (Ecotrin) 81 mg PO HS [facility] Last Admin: 10/27/18 21:49 Dose: 81 mg Atorvastatin Calcium (Lipitor) 40 mg PO DAILY [facility] Last Admin: 10/28/18 08:47 Dose: 40 mg Calcium Carbonate (Oscal) 500 mg PO BID [facility] Last Admin: 10/28/18 16:44 Dose: 500 mg Cyanocobalamin (Vitamin B12 1000 Mcg Tab) 1,000 mcg PO DAILY [facility] Last Admin: 10/28/18 10:23 Dose: 1,000 mcg Enoxaparin Sodium (Lovenox) 40 mg SC DAILY [facility]; Protocol Last Admin: 10/28/18 08:47 Dose: 40 mg Folic Acid (Folic Acid) 1 mg PO DAILY [facility] Last Admin: 10/28/18 08:46 Dose: 1 mg Ceftriaxone Sodium 1 gm/ (Sodium Chloride) 100 mls @ 100 mls/hr IVPB DAILY [facility]; Protocol Last Admin: 10/28/18 08:46 Dose: 100 mls/hr Loratadine (Claritin) 10 mg PO HS [facility] Last Admin: 10/27/18 21:50 Dose: 10 mg Metformin [facility] (Glucophage) [facility] Last Admin: 10/28/18 08:47 Dose: 500 mg Thiamine HCl (Vitamin B1 Tab) 100 mg PO DAILY [facility] Last Admin: 10/28/18 08:48 Dose: 100 mg Vitamin D (Vitamin D 400 Intl Units Tab) 400 intlu PO BID [facility] Last Admin: 10/28/18 16:44 Dose: 400 intlu - Labs Labs: 10/28/18 05:15 10/28/18 05:15 - Constitutional Appears: Confused, Chronically Ill - Head Exam Head Exam: ATRAUMATIC, NORMAL INSPECTION, NORMOCEPHALIC - ENT Exam ENT Exam: Normal Exam - Neck Exam Neck Exam: Full ROM - Respiratory Exam Respiratory Exam: Decreased Breath Sounds - Cardiovascular Exam Cardiovascular Exam: REGULAR RHYTHM, +S1, +S2 - GI/Abdominal Exam GI & Abdominal Exam: Normal Bowel Sounds - Neurological Exam Neurological Exam: Alert, Altered, Awake - Psychiatric Exam Psychiatric exam: Anxious, Depressed, Flat Affect - Skin Skin Exam: Pallor Assessment and Plan (1) Dementia Status: Acute (2) Neuropathy Status: Acute (3) Rhabdomyolysis Status: Acute (4) Syncope Status: Acute (5) S/P shoulder replacement Status: Acute (6) Neuropathy Status: Acute
[2018-10-29 06:42] LABS: BASO % 0.3 % (0.0-2.0); EOS # 0.1 K/uL (0.0-0.7); EOS % 1.1 % (0.0-4.0); HEMOGLOBIN 11.7 g/dL (12.0-16.0); LYMPH # 2.6 K/uL (1.0-4.3); LYMPH % 34.2 % (20.0-40.0); MEAN CELL VOLUME 77.6 fl (81.0-99.0); MEAN CORPUSCULAR HEMOGLOBIN 25.8 pg (27.0-31.0); MEAN CORPUSCULAR HGB CONC 33.3 g/dL (33.0-37.0); MEAN PLATELET VOLUME 8.8 fl (7.2-11.7); MONO # 0.7 K/uL (0.0-0.8); MONO % 9.1 % (0.0-10.0); NEUT # 4.3 K/uL (1.8-7.0); NEUT % 55.3 % (50.0-75.0); NRBC % 0.1 % (0.0-0.0); RBC 4.54 Mil/uL (3.80-5.20); RED CELL DISTRIBUTION WIDTH 13.8 % (11.5-14.5); WHITE BLOOD COUNT 7.7 K/uL (4.8-10.8)
[2018-10-29 06:58] LABS: BLOOD UREA NITROGEN 25 mg/dl (7-17); CALCIUM 10.2 mg/dL (8.4-10.2); GFR NON-AFRICAN AMERICAN > 60
--- NOTE | 2018-10-29 08:04 | CON ---
DATE: 10/28/2018 HISTORY OF PRESENT ILLNESS: This is a 78-year-old lady with a known history of dementia. Apparently, she has been declining fairly rapidly over the past several months according to her daughter. A particular note is that she was walking up until a month or so ago and essentially stopped, and over the same time she has developed rather significant urinary incontinence. She does not have any focal motor or sensory complaints. PAST MEDICAL HISTORY: Reviewed in the EMR. SOCIAL HISTORY: Reviewed in the EMR. MEDICATIONS: Reviewed in the EMR. ALLERGIES: REVIEWED IN THE EMR. PHYSICAL EXAMINATION: GENERAL: She is bright, awake, and pleasant. She is not oriented to name of the hospital and year. She can tell me her name. She actually does follow commands fairly well. HEENT: Pupils are equal and reactive. EOMs are full. Face is symmetric. Tongue is midline. NEUROLOGIC: She has 5/5 strength to gross testing in the four extremities. Sensory exam is grossly intact. DIAGNOSTIC DATA: CT of the brain shows ventriculomegaly out of proportion to her atrophy with signs of some degree of transependymal flow. IMPRESSION AND PLAN: I had a very detailed discussion with the patient's daughter at the bedside. I certainly would advocate a cerebrospinal fluid diversion procedure. I went through details of what a ventriculoperitoneal shunt is, the procedure itself, the rationale behind it, potential risks and complications as well as the chance of success. I emphasized to her that specifically she had speaking if the diversion in normal pressure hydrocephalus most effective or gait disturbance and urinary incontinence which seems to be her most vibrant recent symptoms. Understandably, she wants to over discuss it with her father, i.e., the patient's gave her my card, and we are doing that for her. In addition, the case was discussed at bedside with . Ridge Ohara MD
[2018-10-29] MEDS: Enoxaparin 40 mg Syringe SC SCH (08:38)
[2018-10-29] MEDS: Cholecalciferol 400 Intl Units Tab PO SCH ×2 (08:40→16:21)
--- NOTE | 2018-10-29 12:27 | CP.PCM.PN ---
Subjective - Date & Time of Evaluation Date of Evaluation: 10/29/18 Time of Evaluation: 12:30 - Subjective Subjective: Patient with no chances, still weak, lower limbs weakness, incontinence. Family agree with surgery. Objective - Vital Signs/Intake and Output Vital Signs (last 24 hours): Temp Pulse Resp BP Pulse Ox 97.8 F 85 18 114/68 91 L 10/29/18 07:46 10/29/18 07:46 10/29/18 07:46 10/29/18 07:46 10/29/18 07:46 - Medications Medications: Current Medications Aspirin (Ecotrin) 81 mg PO [facility] Last Admin: 10/28/18 21:27 Dose: 81 mg Atorvastatin Calcium (Lipitor) 40 mg PO DAILY [facility] Last Admin: 10/29/18 08:40 Dose: 40 mg Calcium Carbonate (Oscal) 500 mg PO BID [facility] Last Admin: 10/29/18 08:39 Dose: 500 mg Cyanocobalamin (Vitamin B12 1000 Mcg Tab) 1,000 mcg PO DAILY [facility] Last Admin: 10/29/18 08:40 Dose: 1,000 mcg Enoxaparin Sodium (Lovenox) 40 mg SC DAILY [facility]; Protocol Last Admin: 10/29/18 08:38 Dose: 40 mg Folic Acid (Folic Acid) 1 mg PO DAILY [facility] Last Admin: 10/29/18 08:40 Dose: 1 mg Ceftriaxone Sodium 1 gm/ (Sodium Chloride) 100 mls @ 100 mls/hr IVPB DAILY [facility]; Protocol Last Admin: 10/29/18 08:41 Dose: 100 mls/hr Loratadine (Claritin) 10 mg PO [facility] Last Admin: 10/28/18 21:27 Dose: 10 mg Metformin [facility] (Glucophage) [facility] [place] Last Admin: 10/29/18 08:40 Dose: 500 mg Thiamine HCl (Vitamin B1 Tab) 100 mg PO DAILY [facility] Last Admin: 10/29/18 08:39 Dose: 100 mg Vitamin D (Vitamin D 400 Intl Units Tab) 400 intlu PO BID [facility] Last Admin: 10/29/18 08:40 Dose: 400 intlu - Labs Labs: 10/29/18 06:25 10/29/18 06:25 - Constitutional Appears: Confused, Chronically Ill - Head Exam Head Exam: ATRAUMATIC, NORMAL INSPECTION, NORMOCEPHALIC - Eye Exam Eye Exam: Normal appearance - Neck Exam Neck Exam: Full ROM - Cardiovascular Exam Cardiovascular Exam: REGULAR RHYTHM, +S1, +S2 - GI/Abdominal Exam GI & Abdominal Exam: Normal Bowel Sounds - Neurological Exam Neurological Exam: Alert, Altered, Awake - Psychiatric Exam Psychiatric exam: Depressed, Flat Affect - Skin Skin Exam: Intact Assessment and Plan (1) Dementia Status: Acute (2) Neuropathy Status: Acute (3) Rhabdomyolysis Status: Acute (4) Syncope Status: Acute (5) S/P shoulder replacement Status: Acute (6) Neuropathy Status: Acute (7) Hydrocephalus Status: Acute
--- NOTE | 2018-10-29 13:18 | CP.PCM.PN ---
Subjective - Date & Time of Evaluation Date of Evaluation: 10/29/18 Time of Evaluation: 13:18 - Subjective Subjective: Neuro Follow-Up Note: Mrs. Mayberry was evaluated this afternoon at bedside. No family present. Pt states that she is feeling better and offers no new complaints. Pt remains confused, though, pleasant and engages in most of the exam. Currently denies h/a, dizziness, visual changes, chest pain, palpitations, sob, cough ,abd pain, n/v/d, chills, paresthesias. Objective - Vital Signs/Intake and Output Vital Signs (last 24 hours): Temp Pulse Resp BP Pulse Ox 97.9 F 83 18 98/60 L 95 10/29/18 12:00 10/29/18 12:00 10/29/18 12:00 10/29/18 12:00 10/29/18 12:00 - Medications Medications: Current Medications Aspirin (Ecotrin) 81 mg PO HS [facility] Last Admin: 10/28/18 21:27 Dose: 81 mg Atorvastatin Calcium (Lipitor) 40 mg PO DAILY [facility] Last Admin: 10/29/18 08:40 Dose: 40 mg Calcium Carbonate (Oscal) 500 mg PO BID [facility] Last Admin: 10/29/18 08:39 Dose: 500 mg Cyanocobalamin (Vitamin B12 1000 Mcg Tab) 1,000 mcg PO DAILY [facility] Last Admin: 10/29/18 08:40 Dose: 1,000 mcg Enoxaparin Sodium (Lovenox) 40 mg SC DAILY [facility]; Protocol Last Admin: 10/29/18 08:38 Dose: 40 mg Folic Acid (Folic Acid) 1 mg PO DAILY [facility] Last Admin: 10/29/18 08:40 Dose: 1 mg Ceftriaxone Sodium 1 gm/ (Sodium Chloride) 100 mls @ 100 mls/hr IVPB DAILY [facility]; Protocol Last Admin: 10/29/18 08:41 Dose: 100 mls/hr Loratadine (Claritin) 10 mg PO HS [facility] Last Admin: 10/28/18 21:27 Dose: 10 mg Metformin HCl (Glucophage) 500 mg PO DAILYWM [facility] Last Admin: 10/29/18 08:40 Dose: 500 mg Thiamine HCl (Vitamin B1 Tab) 100 mg PO DAILY [facility] Last Admin: 10/29/18 08:39 Dose: 100 mg Vitamin D (Vitamin D 400 Intl Units Tab) 400 intlu PO BID [facility] Last Admin: 10/29/18 08:40 Dose: 400 intlu - Labs Labs: 10/29/18 06:25 10/29/18 06:25 - Constitutional Appears: Non-toxic, No Acute Distress, Confused - Head Exam Head Exam: ATRAUMATIC, NORMAL INSPECTION, NORMOCEPHALIC - Eye Exam Eye Exam: EOMI, Normal appearance, PERRL Pupil Exam: NORMAL ACCOMODATION, PERRL - ENT Exam ENT Exam: Mucous Membranes Moist - Neck Exam Neck Exam: Full ROM, Normal Inspection - Respiratory Exam Respiratory Exam: NORMAL BREATHING PATTERN - Extremities Exam Extremities Exam: absent: Calf Tenderness, Pedal Edema Additional comments: Left ankle swelling and slight discoloration improving - Neurological Exam Neurological Exam: Alert, Altered, Awake, CN II-XII Intact. absent: Oriented x3 Neuro motor strength exam: Left Upper Extremity: 4 (high speed printer operator 4/5), Right Upper Extremity: 4 (high speed printer operator 4/5), Left Lower Extremity: 3 (distally 3/5), Right Lower Extremity: 3 (distally 3/5) Additional comments: Awake, confused, pleasant; knows her name and age; she does not know that she is in the hospital nor the current year. Speech is clear. No tremors or abnormal movements. Gait not assessed---PT note reviewed. - Psychiatric Exam Psychiatric exam: Normal Affect, Normal Mood Additional comments: baseline confusion, pleasant; dementia - Skin Skin Exam: Normal Color Additional comments: left ankle swelling and discoloration improving Assessment and Plan (1) Normal pressure hydrocephalus Assessment & Plan: Imaging reviewed: -CT Head (10/26/18): No acute intracranial abnormality. Mild chronic microangiopathic changes and mild age-related global parenchymal volume loss. Ventricular dilatation is out of proportion to sulcal prominence and normal pressure hydrocephalus should be considered. Clinical follow-up is advised. -Carotid u/s (10/26/18): Right ICA degree of stenosis: Less than 50% Left ICA degree of stenosis: Less than 50%. No significant interval change compared to the prior examination(s). -MRI Brain ordered, pending--will f/u once completed. -Neurosurgery consulted--recommend [employer] LEAD shunt. Per Dr. Ohara's consult note, pending family decision to go through the procedure. -Lumbar Spine MRI ordered, pending--will f/u once completed. -Continue PT for conditioning and strengthening. -Continue supportive care. -Notify neuro of any acute changes in condition. Minnie Tello DNP, SETTER COLD ROLLING MACHINE d/w Dr. Allen Status: Acute
[2018-10-30] MEDS: Enoxaparin 40 mg Syringe SC SCH ×2 (09:04→11:44)
[2018-10-30] MEDS: Cholecalciferol 400 Intl Units Tab PO SCH ×3 (09:07→17:00)
--- NOTE | 2018-10-30 13:57 | CP.PCM.PN ---
Subjective - Date & Time of Evaluation Date of Evaluation: 10/30/18 Time of Evaluation: 13:56 - Subjective Subjective: poor improvement Objective - Vital Signs/Intake and Output Vital Signs (last 24 hours): Temp Pulse Resp BP Pulse Ox 97.7 F 87 20 107/77 99 10/30/18 12:43 10/30/18 12:43 10/30/18 12:43 10/30/18 12:43 10/30/18 12:43 - Medications Medications: Current Medications Aspirin (Ecotrin) 81 mg PO [facility] Last Admin: 10/29/18 21:34 Dose: 81 mg Atorvastatin Calcium (Lipitor) 40 mg PO DAILY [facility] Last Admin: 10/30/18 11:44 Dose: Not Given Calcium Carbonate (Oscal) 500 mg PO BID [facility] Last Admin: 10/30/18 11:44 Dose: Not Given Cyanocobalamin (Vitamin B12 1000 Mcg Tab) 1,000 mcg PO DAILY [facility] Last Admin: 10/30/18 11:43 Dose: Not Given Enoxaparin Sodium (Lovenox) 40 mg SC DAILY [facility]; Protocol Last Admin: 10/30/18 11:44 Dose: Not Given Folic Acid (Folic Acid) 1 mg PO DAILY [facility] Last Admin: 10/30/18 11:44 Dose: Not Given Ceftriaxone Sodium 1 gm/ (Sodium Chloride) 100 mls @ 100 mls/hr IVPB DAILY [facility]; Protocol Last Admin: 10/30/18 11:42 Dose: Not Given Loratadine (Claritin) 10 mg PO [facility] Last Admin: 10/29/18 21:34 Dose: 10 mg [facility] (Gluc[facility]) [facility] [place] Admin: 10/30/18 11:44 Dose: Not Given Thiamine HCl (Vitamin B1 Tab) 100 mg PO DAILY [facility] Last Admin: 10/30/18 11:43 Dose: Not Given Vitamin D (Vitamin D 400 Intl Units Tab) 400 intlu PO BID [facility] Last Admin: 10/30/18 11:43 Dose: Not Given - Labs Labs: 10/29/18 06:25 10/29/18 06:25 - Constitutional Appears: Confused, Chronically Ill - Head Exam Head Exam: ATRAUMATIC, NORMAL INSPECTION, NORMOCEPHALIC - Cardiovascular Exam Cardiovascular Exam: REGULAR RHYTHM, +S1, +S2 - GI/Abdominal Exam GI & Abdominal Exam: Normal Bowel Sounds - Extremities Exam Extremities Exam: Normal Inspection - Neurological Exam Neurological Exam: Alert, Altered Assessment and Plan (1) Dementia Status: Acute (2) Neuropathy Status: Acute (3) Rhabdomyolysis Status: Acute (4) Syncope Status: Acute (5) S/P shoulder replacement Status: Acute (6) Neuropathy Status: Acute (7) Hydrocephalus Status: Acute
[2018-10-31] MEDS: Enoxaparin 40 mg Syringe SC SCH (08:52)
[2018-10-31] MEDS: Cholecalciferol 400 Intl Units Tab PO SCH ×2 (08:54→17:12)
--- NOTE | 2018-10-31 13:34 | CP.PCM.PN ---
Subjective - Date & Time of Evaluation Date of Evaluation: 10/31/18 Time of Evaluation: 13:34 - Subjective Subjective: Patient improving, mental status with no changes. For surgery Objective - Vital Signs/Intake and Output Vital Signs (last 24 hours): Temp Pulse Resp BP Pulse Ox 98.0 F 85 20 107/73 93 L 10/31/18 12:40 10/31/18 12:40 10/31/18 12:40 10/31/18 12:40 10/31/18 12:40 - Medications Medications: Current Medications Aspirin (Ecotrin) 81 mg PO HS [facility] Last Admin: 10/30/18 21:08 Dose: 81 mg Atorvastatin Calcium (Lipitor) 40 mg PO DAILY [facility] Last Admin: 10/31/18 08:52 Dose: 40 mg Calcium Carbonate (Oscal) 500 mg PO BID [facility] Last Admin: 10/31/18 08:53 Dose: 500 mg Cyanocobalamin (Vitamin B12 1000 Mcg Tab) 1,000 mcg PO DAILY [facility] Last Admin: 10/31/18 08:54 Dose: 1,000 mcg Enoxaparin Sodium (Lovenox) 40 mg SC DAILY [facility]; Protocol Last Admin: 10/31/18 08:52 Dose: 40 mg Folic Acid (Folic Acid) 1 mg PO DAILY [facility] Last Admin: 10/31/18 08:51 Dose: 1 mg Ceftriaxone Sodium 1 gm/ (Sodium Chloride) 100 mls @ 100 mls/hr IVPB DAILY [facility]; Protocol Last Admin: 10/31/18 10:42 Dose: 100 mls/hr Loratadine (Claritin) 10 mg PO HS [facility] Last Admin: 10/30/18 21:08 Dose: 10 mg Metformin [facility] (Glucophage) [facility] [place] Last Admin: 10/31/18 08:52 Dose: 500 mg Thiamine HCl (Vitamin B1 Tab) 100 mg PO DAILY [facility] Last Admin: 10/31/18 08:53 Dose: 100 mg Vitamin D (Vitamin D 400 Intl Units Tab) 400 intlu PO BID [facility] Last Admin: 10/31/18 08:54 Dose: 400 intlu - Labs Labs: 10/29/18 06:25 10/29/18 06:25 - Constitutional Appears: Confused, Chronically Ill - Head Exam Head Exam: ATRAUMATIC, NORMAL INSPECTION, NORMOCEPHALIC - Eye Exam Eye Exam: Normal appearance - ENT Exam ENT Exam: Mucous Membranes Moist - Neck Exam Neck Exam: Full ROM - Respiratory Exam Respiratory Exam: Clear to Ausculation Bilateral - Cardiovascular Exam Cardiovascular Exam: REGULAR RHYTHM, +S1, +S2 - GI/Abdominal Exam GI & Abdominal Exam: Soft, Normal Bowel Sounds - Neurological Exam Neurological Exam: Alert, Altered - Psychiatric Exam Psychiatric exam: Normal Affect Assessment and Plan (1) Dementia Status: Acute (2) Neuropathy Status: Acute (3) Rhabdomyolysis Status: Acute (4) Syncope Status: Acute (5) S/P shoulder replacement Status: Acute (6) Neuropathy Status: Acute (7) Hydrocephalus Status: Acute
[2018-11-01] MEDS: Enoxaparin 40 mg Syringe SC SCH (09:00)
[2018-11-01] MEDS: Cholecalciferol 400 Intl Units Tab PO SCH (09:00)
--- NOTE | 2018-11-01 11:20 | CP.PCM.PN ---
Subjective - Date & Time of Evaluation Date of Evaluation: 11/01/18 Time of Evaluation: 11:21 - Subjective Subjective: Patietn still with sign of incontinence, severe neuro deficit in lower limbs and progressive dementia. For Shunt, Ventriculoperitoneal for Hydrocephalus. The case discussed with family and they agree fo the procedure. Objective - Vital Signs/Intake and Output Vital Signs (last 24 hours): Temp Pulse Resp BP Pulse Ox 98.4 F 83 18 110/61 96 11/01/18 07:53 11/01/18 07:53 11/01/18 07:53 11/01/18 07:53 11/01/18 07:53 Intake and Output: 10/31/18 11/01/18 23:59 11:59 Intake Total 1300 Balance 1300 - Medications Medications: Current Medications Aspirin (Ecotrin) [address] [facility] Last Admin: 10/31/18 22:50 Dose: 81 mg Atorvastatin Calcium (Lipitor) [address] [facility] Last Admin: 10/31/18 08:52 Dose: 40 mg Calcium Carbonate (Oscal) [address] [facility] Last Admin: 10/31/18 17:12 Dose: 500 mg Cyanocobalamin (Vitamin B12 1000 Mcg Tab) 1,[address] [facility] Last Admin: 10/31/18 08:54 Dose: 1,000 mcg Folic Acid (Folic Acid) [address] [facility] Last Admin: 10/31/18 08:51 Dose: 1 mg Loratadine (Claritin) [address] [facility] Last Admin: 10/31/18 22:50 Dose: 10 mg Metformin HCl (Glucophage) [facility] [place] Last Admin: 10/31/18 08:52 Dose: 500 mg Thiamine HCl (Vitamin B1 Tab) [address] [facility] Last Admin: 10/31/18 08:53 Dose: 100 mg Vitamin D (Vitamin D 400 Intl Units Tab) [address] [facility] Last Admin: 10/31/18 17:12 Dose: 400 intlu - Labs Labs: 10/29/18 06:25 10/29/18 06:25 - Constitutional Appears: Confused, Chronically Ill - Head Exam Head Exam: ATRAUMATIC, NORMAL INSPECTION, NORMOCEPHALIC - Eye Exam Eye Exam: Normal appearance - ENT Exam ENT Exam: Mucous Membranes Moist - Neck Exam Neck Exam: Full ROM - Respiratory Exam Respiratory Exam: Clear to Ausculation Bilateral - Cardiovascular Exam Cardiovascular Exam: REGULAR RHYTHM, +S1, +S2 - GI/Abdominal Exam GI & Abdominal Exam: Normal Bowel Sounds - Neurological Exam Neurological Exam: Abnormal Gait, Alert, Altered - Psychiatric Exam Psychiatric exam: Flat Affect - Skin Skin Exam: Pallor Assessment and Plan (1) Dementia Status: Acute (2) Neuropathy Status: Acute (3) Rhabdomyolysis Status: Acute (4) Syncope Status: Acute (5) S/P shoulder replacement Status: Acute (6) Neuropathy Status: Acute (7) Hydrocephalus Status: Acute
--- NOTE | 2018-11-01 11:30 | CP.PCM.PN ---
Subjective - Date & Time of Evaluation Date of Evaluation: 11/01/18 Time of Evaluation: 11:28 - Subjective Subjective: Neuro Follow-Up Note: Mrs. Mayberry was evaluated this morning at bedside. No family present. Pt states that she is feeling "ok" and offers no new complaints. Pt remains confused. Today she was unable to participate in exam and could not follow most commands. Pending IDENTIFICATION PRINTING MACHINE SETTER shunt procedure with neurosurgery. ROS limited today but pt denies h/a, dizziness, visual changes, chest pain, sob. Objective - Vital Signs/Intake and Output Vital Signs (last 24 hours): Temp Pulse Resp BP Pulse Ox 98.4 F 83 18 110/61 96 11/01/18 07:53 11/01/18 07:53 11/01/18 07:53 11/01/18 07:53 11/01/18 07:53 - Medications Medications: Current Medications Aspirin (Ecotrin) 81 mg PO HS [facility] Last Admin: 10/31/18 22:50 Dose: 81 mg Atorvastatin Calcium (Lipitor) 40 mg PO DAILY [facility] Last Admin: 10/31/18 08:52 Dose: 40 mg Calcium Carbonate (Oscal) 500 mg PO BID [facility] Last Admin: 10/31/18 17:12 Dose: 500 mg Cyanocobalamin (Vitamin B12 1000 Mcg Tab) 1,000 mcg PO DAILY [facility] Last Admin: 10/31/18 08:54 Dose: 1,000 mcg Folic Acid (Folic Acid) 1 mg PO DAILY [facility] Last Admin: 10/31/18 08:51 Dose: 1 mg Loratadine (Claritin) 10 mg PO HS [facility] Last Admin: 10/31/18 22:50 Dose: 10 mg Metformin HCl (Glucophage) [facility] [place] Admin: 10/31/18 08:52 Dose: 500 mg Thiamine HCl (Vitamin B1 Tab) 100 mg PO DAILY [facility] Last Admin: 10/31/18 08:53 Dose: 100 mg Vitamin D (Vitamin D 400 Intl Units Tab) 400 intlu PO BID [facility] Last Admin: 10/31/18 17:12 Dose: 400 intlu - Labs Labs: 10/29/18 06:25 10/29/18 06:25 - Constitutional Appears: No Acute Distress, Confused - Head Exam Head Exam: ATRAUMATIC, NORMAL INSPECTION, NORMOCEPHALIC - Eye Exam Eye Exam: EOMI, Normal appearance - ENT Exam ENT Exam: Mucous Membranes Moist - Neck Exam Neck Exam: Full ROM, Normal Inspection - Respiratory Exam Respiratory Exam: NORMAL BREATHING PATTERN - Extremities Exam Additional comments: Unable to follow commands to assess strength, though pt moves all extremities; more generalized weakness noted to BLE. - Neurological Exam Neurological Exam: Altered, Awake, Reflexes Normal. absent: Oriented x3 Additional comments: Awake, confused, calm; today she is not as talkative compared to last week though answers my questions. Speech is clear. Unable to assess strength today, however, pt moves all extremities with more generalized weakness to BLE, likely 2/2 deconditioning. No tremors or abnormal movements. - Psychiatric Exam Additional comments: confused, calm; baseline dementia - Skin Skin Exam: Dry, Intact, Normal Color Assessment and Plan (1) Normal pressure hydrocephalus Assessment & Plan: Imaging reviewed: -CT Head (10/26/18): No acute intracranial abnormality. Mild chronic microangiopathic changes and mild age-related global parenchymal volume loss. Ventricular dilatation is out of proportion to sulcal prominence and normal pressure hydrocephalus should be considered. Clinical follow-up is advised. -Carotid u/s (10/26/18): Right ICA degree of stenosis: Less than 50% Left ICA degree of stenosis: Less than 50%. No significant interval change compared to the prior examination(s). -Pt's family in agreement with IDENTIFICATION PRINTING MACHINE SETTER shunt procedure per primary progress notes; will defer NPH management and treatment to neurosurgery. -MRI Brain and Lumbar Spine MRI have been ordered since last week, still pending--will f/u if these can be completed. -Continue PT and supportive care. -Notify neuro of any acute changes in condition. Minnie Tello, PARVEEN, ENVIRONMENTAL ENGINEERING ASSISTANT d/w Dr. Allen Status: Acute
[2018-11-01 11:58] LABS: HEMOGLOBIN 12.3 g/dL (12.0-16.0); MEAN CELL VOLUME 77.9 fl (81.0-99.0); MEAN CORPUSCULAR HEMOGLOBIN 25.4 pg (27.0-31.0); MEAN CORPUSCULAR HGB CONC 32.6 g/dL (33.0-37.0); RBC 4.85 Mil/uL (3.80-5.20); RED CELL DISTRIBUTION WIDTH 14.3 % (11.5-14.5); WHITE BLOOD COUNT 7.2 K/uL (4.8-10.8)
[2018-11-01 12:07] LABS: PROTHROMBIN TIME 11.3 Seconds (9.8-13.1)
[2018-11-01 12:10] LABS: PARTIAL THROMBOPLASTIN TIME 29.5 Seconds (25.6-37.1)
[2018-11-01 12:17] LABS: ALB/GLOB RATIO 1.1 (1.0-2.1); ALBUMIN 4.4 g/dL (3.5-5.0); ALT/SGPT 40 U/L (9-52); AST/SGOT 42 U/L (14-36); BILIRUBIN,DIRECT 0.3 mg/ml (0.0-0.4); BLOOD UREA NITROGEN 35 mg/dl (7-17); CALCIUM 10.2 mg/dL (8.4-10.2); GFR NON-AFRICAN AMERICAN > 60
--- NOTE | 2018-11-01 13:49 | CP.PCM.DIS ---
Provider - Provider Date of Admission: 10/27/18 11:55 Attending physician: Jim Broussard MD Consults: 10/27/18 11:07 Neurology Consult Routine Comment: Consulting Provider: Josef Gentile Consulting Physician: Josef Gentile Reason for Consult: Syncope, lower ext weakness 10/28/18 09:19 Neuro Surgery Consult Routine Comment: Consulting Provider: Ridge Ohara Consulting Physician: Ridge Ohara Reason for Consult: syncope, fall, CT head + [employer]BER Hydrocephalus Time Spent in preparation of Discharge (in minutes): 30 Diagnosis - Discharge Diagnosis (1) Dementia Status: Acute (2) Neuropathy Status: Acute (3) Rhabdomyolysis Status: Acute (4) Syncope Status: Acute (5) S/P shoulder replacement Status: Acute (6) Neuropathy Status: Acute (7) Hydrocephalus Status: Acute Hospital Course - Lab Results Lab Results: Micro Results 10/26/18 21:48 Blood-Venous Blood Culture - Final NO GROWTH AFTER 5 DAYS 10/26/18 21:48 Blood-Venous Gram Stain - Final TEST NOT PERFORMED 10/26/18 21:20 Urine,Clean Catch Urine Culture - Final No Growth (<1,000 CFU/ML) Most Recent Lab Values WBC 7.2 K/uL (4.8-10.8) 11/01/18 11:40 RBC 4.85 Mil/uL (3.80-5.20) 11/01/18 11:40 Hgb 12.3 g/dL (12.0-16.0) 11/01/18 11:40 Hct 37.8 % (34.0-47.0) 11/01/18 11:40 MCV 77.9 fl (81.0-99.0) L 11/01/18 11:40 MCH 25.4 pg (27.0-31.0) L 11/01/18 11:40 MCHC 32.6 g/dL (33.0-37.0) L 11/01/18 11:40 RDW 14.3 % (11.5-14.5) 11/01/18 11:40 Plt Count 256 K/uL (130-400) 11/01/18 11:40 MPV 8.8 fl (7.2-11.7) 10/29/18 06:25 Neut % (Auto) 55.3 % (50.0-75.0) 10/29/18 06:25 Lymph % (Auto) 34.2 % (20.0-40.0) 10/29/18 06:25 [place]one % (Auto) 9.1 % (0.0-10.0) 10/29/18 06:25 Eos % (Auto) 1.1 % (0.0-4.0) 10/29/18 06:25 Baso % (Auto) 0.3 % (0.0-2.0) 10/29/18 06:25 Neut # (Auto) 4.3 K/uL (1.8-7.0) 10/29/18 06:25 Lymph # (Auto) 2.6 K/uL (1.0-4.3) 10/29/18 06:25 [place]oshone # (Auto) 0.7 K/uL (0.0-0.8) 10/29/18 06:25 Eos # (Auto) 0.1 K/uL (0.0-0.7) 10/29/18 06:25 Baso # (Auto) 0.0 K/uL (0.0-0.2) 10/29/18 06:25 ESR 64 mm/hr (0-30) H 10/27/18 12:00 PT 11.3 Seconds (9.8-13.1) 11/01/18 11:40 INR 1.0 11/01/18 11:40 APTT 29.5 Seconds (25.6-37.1) 11/01/18 11:40 Sodium 138 mmol/l (132-148) 11/01/18 11:40 Potassium 4.1 MMOL/L (3.6-5.0) 11/01/18 11:40 Chloride 101 mmol/L (98-107) 11/01/18 11:40 Carbon Dioxide 25 mmol/L (22-30) 11/01/18 11:40 Anion Gap 16 (10-20) 11/01/18 11:40 BUN 35 mg/dl (7-17) H 11/01/18 11:40 Creatinine 0.9 mg/dl (0.7-1.2) 11/01/18 11:40 Est GFR ( Amer) > 60 11/01/18 11:40 Est GFR (Non-Af Amer) > 60 11/01/18 11:40 Random Glucose 129 mg/dL (65-105) H 11/01/18 11:40 Hemoglobin A1c 7.0 % (4.2-6.5) H 10/26/18 20:41 Lactic Acid 0.8 mmol/L (0.7-2.1) 10/26/18 20:41 Calcium 10.2 mg/dL (8.4-10.2) 11/01/18 11:40 Total Bilirubin 0.4 mg/dl (0.2-1.3) 11/01/18 11:40 Direct Bilirubin 0.3 mg/ml (0.0-0.4) 11/01/18 11:40 AST 42 U/L (14-36) H D 11/01/18 11:40 ALT 40 U/L (9-52) 11/01/18 11:40 Alkaline Phosphatase 111 U/L (38-126) 11/01/18 11:40 Ammonia < 9 umol/L (9-33) L 10/26/18 20:41 Total Creatine Kinase 588 U/L (30-135) H 10/27/18 06:31 CK-MB (Mass) 2.98 ng/mL (0.0-3.38) 10/28/18 05:15 Troponin I < 0.0120 ng/mL (0.00-0.120) 10/26/18 18:08 Total Protein 8.2 G/DL (6.3-8.2) 11/01/18 11:40 Albumin 4.4 g/dL (3.5-5.0) 11/01/18 11:40 Globulin 3.8 gm/dL (2.2-3.9) 11/01/18 11:40 Albumin/Globulin Ratio 1.1 (1.0-2.1) 11/01/18 11:40 Vitamin B12 327 pg/mL (239-931) 10/27/18 12:00 Folate > 20.0 ng/mL 10/27/18 12:00 TSH 3rd Generation 0.90 mIU/ML (0.46-4.68) 10/26/18 20:28 Urine Color Yellow (YELLOW) 10/26/18 21:20 Urine Clarity Clear (Clear) 10/26/18 21:20 Urine pH 6.0 (5.0-8.0) 10/26/18 21:20 Ur Specific [place] 1.014 (1.003-1.030) 10/26/18 21:20 Urine Protein Negative mg/dL (NEGATIVE) 10/26/18 21:20 Urine Glucose (UA) Neg mg/dL (NEGATIVE) 10/26/18 21:20 Urine Ketones Trace mg/dL (NEGATIVE) 10/26/18 21:20 Urine Blood Negative (NEGATIVE) 10/26/18 21:20 Urine Nitrate Negative (NEGATIVE) 10/26/18 21:20 Urine Bilirubin Negative (NEGATIVE) 10/26/18 21:20 Urine Urobilinogen 0.2-1.0 mg/dL (0.2-1.0) 10/26/18 21:20 Ur Leukocyte Esterase Trace Sai/uL (Negative) 10/26/18 21:20 Urine RBC (Auto) 1 /hpf (0-3) 10/26/18 21:20 Urine Microscopic WBC 4 /hpf (0-5) 10/26/18 21:20 Ur Squamous Epith Cells 3 /hpf (0-5) 10/26/18 21:20 Urine Bacteria Rare (<OCC) 10/26/18 21:20 JOSE Screen Negative (Negative) 10/27/18 12:00 RPR Nonreactive (NONREACTIVE) 10/27/18 12:00 - Hospital Course Hospital Course: 78yo female with dementia at baseline, brought to ER by daughter for evaluation after patient was found on the floor next to her bed last night by her . As per daughter patient was down for an unknown amount of time. She states the patient was awake when found on the floor. She has new onset of severe lower limb weakness, incontinence and worse mental status. She improved but istill weak in need of further PT. Discharge Exam - Head Exam Head Exam: ATRAUMATIC, NORMAL INSPECTION, NORMOCEPHALIC - Eye Exam Eye Exam: Normal appearance - ENT Exam ENT Exam: Normal Exam - Neck Exam Neck exam: Full Rom - Respiratory Exam Respiratory Exam: Clear to PA & Lateral - Cardiovascular Exam Cardiovascular Exam: REGULAR RHYTHM, +S1, +S2 - GI/Abdominal Exam GI & Abdominal Exam: Normal Bowel Sounds - Extremities Exam Extremities exam: normal inspection - Neurological Exam Neurological exam: Alert, Altered - Psychiatric Exam Psychiatric exam: Depressed, Flat Affect - Skin Skin Exam: Normal Color Discharge Plan - Follow Up Plan Condition: FAIR Disposition: HOME/ ROUTINE
[2018-11-01 16:19] VITALS: BP 143/72; PULSE 78; RESP 20; TEMP 97.3; O2SAT 98
== END 2018-11-01 16:25 | DRG 57 ==
LOC: H.ER 16:10 → H.ERHOLD 18:51 → H.TEL 22:20 → OBSVTOIN 10-27 11:55
PROVIDERS: ADMIT Internal Medicine; ATTEND Internal Medicine
DX: G91.2 (Idiopathic) normal pressure hydrocephalus (principal); M62.82 Rhabdomyolysis; R55 Syncope and collapse; F03.90 Unspecified dementia, unspecified severity, without behavioral disturbance, psychotic disturbance, mood disturbance, and anxiety; E11.42 Type 2 diabetes mellitus with diabetic polyneuropathy; Z96.611 Presence of right artificial shoulder joint; E78.00 Pure hypercholesterolemia, unspecified; E78.5 Hyperlipidemia, unspecified; Z86.73 Personal history of transient ischemic attack (TIA), and cerebral infarction without residual deficits; Z79.82 Long term (current) use of aspirin; F41.9 Anxiety disorder, unspecified; R32 Unspecified urinary incontinence; M25.572 Pain in left ankle and joints of left foot

== ENCOUNTER 2018-11-01 15:09 | Inpatient (IN) | payer OTHER ==
[2018-11-01 16:49] VITALS: BMI 25.7
[2018-11-02] MEDS: Cholecalciferol 400 Intl Units Tab PO SCH ×2 (08:55→16:44)
[2018-11-02] MEDS: Calcium-Vit D 500 mg-200 Units Tab UD PO SCH ×2 (08:55→16:44)
--- NOTE | 2018-11-02 12:48 | CP.PCM.CON ---
History of Present Illness - History of Present Illness History of Present Illness: Initial Neurology Consultation Note Consultation Requested by Dr. Tina Broussard Mrs. Mayberry is a 78 y/o female with a PMHx of HLD, DM, and baseline dementia. She was admitted to the [facility] after a recent admission for being found by her on the floor at home next to her bed. She is known to our neurology group from her last admission on . She remains confused and has dementia. CT Head done during last admission was suggestive of NPH. Therefore, pt was evaluated by neurosurgery, Dr. Ohara, who advised the pt's family that a BUSINESS ADMINISTRATOR shunt would be beneficial. Pt's daughter and discussed the procedure and agreed to have her undergo the BUSINESS ADMINISTRATOR shunt. She is for possible OR early next week. At this time her ASA is being held in preparation for the procedure. Pt still has significant weakness to her lower extremities and incontinence. She was complaining of lower extremity pain and weakness during the last admission. Daughter verbalized concerns of pt being more sedentary recently. She was pending a Brain MRI and Lumbar Spine MRI during last admission but was unable to have them done. She is still c/o lower extremity discomfort. Otherwise, ROS is negative. We have been consulted to assist in the management and care of this pt. Review of Systems - Constitutional Constitutional: As Per HPI - EENT Eyes: As Per HPI Ears: As Per HPI Nose/Mouth/Throat: As Per HPI - Breasts Breasts: As Per HPI - Cardiovascular Cardiovascular: As Per HPI - Respiratory Respiratory: As Per HPI - Gastrointestinal Gastrointestinal: As Per HPI - Genitourinary Genitourinary: As Per HPI - Reproductive: Female Reproductive:Female: As Per HPI - Menstruation Menstruation: As Per HPI - Musculoskeletal Musculoskeletal: As Per HPI - Integumentary Integumentary: As Per HPI - Neurological Neurological: As Per HPI - Psychiatric Psychiatric: As Per HPI - Endocrine Endocrine: As Per HPI - Hematologic/Lymphatic Hematologic: As Per HPI Past Patient History - Infectious Disease Hx of Infectious Diseases: None - Tetanus Immunizations Tetanus Immunization: Unknown - Past Medical History & Family History Past Medical History?: Yes - Past Social History Smoking Status: Never Smoked Chewing Tobacco Use: No Cigar Use: No Occupation: retired Alcohol: None Drugs: Denies Home Situation {Lives}: With Family () Domestic Violence: Negative - CARDIAC Hx Hypercholesterolemia: Yes - PULMONARY Hx Respiratory Disorders: No Other/Comment: NPH - NEUROLOGICAL Hx Dementia: Yes - HEENT Hx HEENT Problems: No - RENAL Hx Chronic Kidney Disease: No - ENDOCRINE/METABOLIC Hx Endocrine Disorders: Yes Hx Diabetes Mellitus Type 2: Yes - HEMATOLOGICAL/ONCOLOGICAL Hx AIDS: No Hx Human Immunodeficiency Virus (HIV): No - INTEGUMENTARY Hx Dermatological Problems: No - MUSCULOSKELETAL/RHEUMATOLOGICAL Hx Musculoskeletal Disorders: No Hx Falls: Yes - GASTROINTESTINAL Hx Gastrointestinal Disorders: No - GENITOURINARY/GYNECOLOGICAL Hx Genitourinary Disorders: No - PSYCHIATRIC Hx Anxiety: Yes Hx Substance Use: No - SURGICAL HISTORY Hx Surgeries: Yes Hx Joint Replacement: Yes (right Total shoulder replacement) Hx Orthopedic Surgery: Yes (CARPAL TUNNEL) Other/Comment: COLONOSCOPY - ANESTHESIA Hx Anesthesia: Yes Hx Anesthesia Reactions: No Hx Malignant Hyperthermia: No Meds Allergies/Adverse Reactions: Allergies Allergy/AdvReac Type Severity Reaction Status Date / Time No Known Allergies Allergy Verified 11/01/18 16:04 - Medications Medications: Current Medications Atorvastatin Calcium (Lipitor) 40 mg PO DAILY [facility] Last Admin: 11/02/18 08:56 Dose: 40 mg Calcium/Vitamin D (Oyster Shell Calcium/Vitamin D 500 Mg-200 Iu) 1 tab PO BID [facility] Last Admin: 11/02/18 08:55 Dose: 1 tab Cyanocobalamin (Vitamin B12 1000 Mcg Tab) 1,000 mcg PO DAILY [facility] Last Admin: 11/02/18 08:55 Dose: 1,000 mcg Folic Acid (Folic Acid) 1 mg PO DAILY [facility] Last Admin: 11/02/18 08:55 Dose: 1 mg Loratadine (Claritin) 10 mg PO HS [facility] Last Admin: 11/01/18 21:08 Dose: 10 mg Metformin HCl (Glucophage) 500 mg PO DAILY [facility] Last Admin: 11/02/18 08:55 Dose: 500 mg Thiamine HCl (Vitamin B1 Tab) 100 mg PO DAILY [facility] Last Admin: 11/02/18 08:56 Dose: 100 mg Vitamin D (Vitamin D 400 Intl Units Tab) 400 intlu PO BID [facility] Last Admin: 11/02/18 08:55 Dose: 400 intlu Physical Exam - Constitutional Appears: Well, Non-toxic, No Acute Distress, Confused (baseline dementia) - Head Exam Head Exam: ATRAUMATIC, NORMAL INSPECTION, NORMOCEPHALIC - Eye Exam Eye Exam: EOMI, Normal appearance - ENT Exam ENT Exam: Mucous Membranes Moist - Neck Exam Neck exam: Positive for: Full Rom, Normal Inspection - Respiratory Exam Respiratory Exam: NORMAL BREATHING PATTERN - Extremities Exam Extremities exam: Positive for: full ROM, normal inspection. Negative for: calf tenderness, pedal edema Additional comments: generalized weakness to BLE, same as yesterday's exam - Neurological Exam Neurological exam: Abnormal Gait (unsteady), Alert, CN II-XII Intact Additional comments: neuro exam limited 2/2 pt receiving PT during time of rounds. Speech clear, fluid Awake and alert; has baseline dementia. Generalized weakness to BLE, same as yesterday No tremors or abnormal movements - Psychiatric Exam Psychiatric exam: Normal Mood Additional comments: baseline dementia - Skin Skin Exam: Normal Color Additional comments: bruise noted to left forearm Results - Vital Signs Recent Vital Signs: Last Vital Signs Temp 98.5 F 11/01/18 19:39 Pulse 87 11/01/18 19:39 Resp 20 11/01/18 19:39 BP 114/64 11/01/18 19:39 Pulse Ox 94 L 11/01/18 19:39 Assessment & Plan (1) Normal pressure hydrocephalus Assessment and Plan: Imaging reviewed: -CT Head (10/26/18): No acute intracranial abnormality. Mild chronic microangiopathic changes and mild age-related global parenchymal volume loss. Ventricular dilatation is out of proportion to sulcal prominence and normal pressure hydrocephalus should be considered. Clinical follow-up is advised. -Pending BUSINESS ADMINISTRATOR shunt placement procedure with neurosurgery likely for early next week. Pt needs to be off of ASA for 5 days prior to the procedure (started today; day 5 will be Thursday). -Will need a repeat non-contrast CT Head pre-op. We will provide Rx to have this done tomorrow. -Will f/u with the pt again prior to the procedure. -Notify neuro team of any acute changes in pt's condition. Minnie Tello DNP, COMMUNICATIONS SUPERVISOR d/w Dr. Allen Status: Acute - Date & Time Date: 11/02/18 Time: 15:23
--- NOTE | 2018-11-02 13:40 | CP.PCM.HP ---
History of Present Illness - History of Present Illness History of Present Illness: 78 yo female with dementia at baseline, brought to ER by daughter for evaluation after patient was found on the floor next to her bed last night by her . As per daughter patient was down for an unknown amount of time. She states the patient was awake when found on the floor. She has new onset of severe lower limb weakness, incontinence and worse mental status. She improved but still weak in need of further PT. Present on Admission - Present on Admission Any Indicators Present on Admission: No Past Patient History - Infectious Disease Hx of Infectious Diseases: None - Tetanus Immunizations Tetanus Immunization: Unknown - Past Medical History & Family History Past Medical History?: Yes - Past Social History Smoking Status: Never Smoked - CARDIAC Hx Hypercholesterolemia: Yes - PULMONARY Hx Respiratory Disorders: No Other/Comment: NPH - NEUROLOGICAL Hx Dementia: Yes - HEENT Hx HEENT Problems: No - RENAL Hx Chronic Kidney Disease: No - ENDOCRINE/METABOLIC Hx Endocrine Disorders: Yes Hx Diabetes Mellitus Type 2: Yes - HEMATOLOGICAL/ONCOLOGICAL Hx AIDS: No Hx Human Immunodeficiency Virus (HIV): No - INTEGUMENTARY Hx Dermatological Problems: No - MUSCULOSKELETAL/RHEUMATOLOGICAL Hx Musculoskeletal Disorders: No Hx Falls: Yes - GASTROINTESTINAL Hx Gastrointestinal Disorders: No - GENITOURINARY/GYNECOLOGICAL Hx Genitourinary Disorders: No - PSYCHIATRIC Hx Anxiety: Yes Hx Substance Use: No - SURGICAL HISTORY Hx Surgeries: Yes Hx Joint Replacement: Yes (right Total shoulder replacement) Hx Orthopedic Surgery: Yes (CARPAL TUNNEL) Other/Comment: COLONOSCOPY - ANESTHESIA Hx Anesthesia: Yes Hx Anesthesia Reactions: No Hx Malignant Hyperthermia: No Meds Allergies/Adverse Reactions: Allergies Allergy/AdvReac Type Severity Reaction Status Date / Time No Known Allergies Allergy Verified 11/01/18 16:04 Physical Exam - Constitutional Appears: Confused, Chronically Ill - Head Exam Head Exam: ATRAUMATIC, NORMAL INSPECTION, NORMOCEPHALIC - Eye Exam Eye Exam: Normal appearance - ENT Exam ENT Exam: Mucous Membranes Moist - Neck Exam Neck exam: Positive for: Full Rom - Respiratory Exam Respiratory Exam: Clear to Auscultation Bilateral - Cardiovascular Exam Cardiovascular Exam: REGULAR RHYTHM, +S1, +S2 - GI/Abdominal Exam GI & Abdominal Exam: Normal Bowel Sounds - Extremities Exam Extremities exam: Positive for: normal inspection - Neurological Exam Neurological exam: Alert, Altered - Psychiatric Exam Psychiatric exam: Anxious, Depressed, Flat Affect - Skin Skin Exam: Normal Color Results - Vital Signs Recent Vital Signs: Last Vital Signs Temp 98.4 F 11/02/18 10:00 Pulse 89 11/02/18 10:00 Resp 20 11/02/18 10:00 BP 112/57 L 11/02/18 10:00 Pulse Ox 98 11/02/18 10:00 Assessment & Plan (1) Anxiety Status: Acute (2) Dementia Status: Chronic (3) Depression Status: Chronic (4) Dyslipidemia Status: Chronic (5) Hydrocephalus Status: Chronic (6) Neuropathy Status: Chronic (7) S/P shoulder replacement Status: Chronic (8) Syncope Status: Resolved (9) Debility Status: Acute
[2018-11-02] MEDS: Insulin Regular 100 units/ml SC SCH ×2 (16:43→22:08)
[2018-11-03 06:06] LABS: BASO # 0.1 K/uL (0.0-0.2); BASO % 1.2 % (0.0-2.0); EOS # 0.1 K/uL (0.0-0.7); EOS % 1.7 % (0.0-4.0); LYMPH # 3.3 K/uL (1.0-4.3); LYMPH % 41.4 % (20.0-40.0); MEAN CELL VOLUME 78.4 fl (81.0-99.0); MEAN CORPUSCULAR HEMOGLOBIN 25.9 pg (27.0-31.0); MEAN PLATELET VOLUME 8.5 fl (7.2-11.7); MONO # 0.7 K/uL (0.0-0.8); MONO % 9.3 % (0.0-10.0); NEUT # 3.7 K/uL (1.8-7.0); NEUT % 46.4 % (50.0-75.0); NRBC % 0.1 % (0.0-0.0); RBC 5.03 Mil/uL (3.80-5.20); RED CELL DISTRIBUTION WIDTH 14.3 % (11.5-14.5)
[2018-11-03 06:07] LABS: INR 0.9; PROTHROMBIN TIME 10.7 Seconds (9.8-13.1)
[2018-11-03 06:10] LABS: PARTIAL THROMBOPLASTIN TIME 32.7 Seconds (25.6-37.1)
[2018-11-03 06:23] LABS: ALB/GLOB RATIO 1.2 (1.0-2.1); ALBUMIN 4.4 g/dL (3.5-5.0); BILIRUBIN,DIRECT 0.3 mg/ml (0.0-0.4); CALCIUM 9.6 mg/dL (8.4-10.2)
[2018-11-03] MEDS: Insulin Regular 100 units/ml SC SCH ×4 (07:42→21:58)
[2018-11-03] MEDS: Cholecalciferol 400 Intl Units Tab PO SCH ×2 (12:49→18:57)
[2018-11-03] MEDS: Calcium-Vit D 500 mg-200 Units Tab UD PO SCH ×2 (12:49→18:57)
--- NOTE | 2018-11-03 22:34 | CP.PCM.PN ---
Subjective - Date & Time of Evaluation Date of Evaluation: 11/03/18 Time of Evaluation: 13:45 - Subjective Subjective: Looks comfortable Objective - Vital Signs/Intake and Output Vital Signs (last 24 hours): Temp Pulse Resp BP Pulse Ox 98.5 F 100 H 20 132/72 94 L 11/03/18 20:57 11/03/18 20:57 11/03/18 20:57 11/03/18 20:57 11/03/18 20:57 - Medications Medications: Current Medications Atorvastatin Calcium (Lipitor) 40 mg PO DAILY [facility] Last Admin: 11/03/18 12:49 Dose: Not Given Calcium/Vitamin D (Oyster Shell Calcium/Vitamin D 500 Mg-200 Iu) 1 tab PO BID [facility] Last Admin: 11/03/18 18:57 Dose: Not Given Cyanocobalamin (Vitamin B12 1000 Mcg Tab) 1,000 mcg PO DAILY [facility] Last Admin: 11/03/18 12:49 Dose: Not Given Folic Acid (Folic Acid) 1 mg PO DAILY [facility] Last Admin: 11/03/18 12:49 Dose: Not Given Insulin Human Regular (Humulin R) 0 units SC [facility]; Protocol Last Admin: 11/03/18 21:58 Dose: Not Given Loratadine (Claritin) 10 mg PO [facility] Last Admin: 11/03/18 21:56 Dose: 10 mg Memantine (Namenda) 5 mg PO DAILY [facility] Last Admin: 11/03/18 12:49 Dose: Not Given Metformin HCl (Glucophage) 500 mg PO DAILY [facility] Last Admin: 11/03/18 12:49 Dose: Not Given Quetiapine Fumarate (Seroquel) 25 mg PO [facility] Last Admin: 11/03/18 21:57 Dose: 25 mg Thiamine HCl (Vitamin B1 Tab) 100 mg PO DAILY [facility] Last Admin: 11/03/18 12:49 Dose: Not Given Vitamin D (Vitamin D 400 Intl Units Tab) 400 intlu PO BID [facility] Last Admin: 11/03/18 18:57 Dose: Not Given - Labs Labs: 11/03/18 05:40 11/03/18 05:40 PT 10.7 Seconds (9.8-13.1) 11/03/18 05:40 INR 0.9 11/03/18 05:40 APTT 32.7 Seconds (25.6-37.1) 11/03/18 05:40 - Constitutional Appears: Confused - Head Exam Head Exam: ATRAUMATIC, NORMAL INSPECTION, NORMOCEPHALIC - Eye Exam Eye Exam: Normal appearance - ENT Exam ENT Exam: Normal Exam - Neck Exam Neck Exam: Full ROM - Respiratory Exam Respiratory Exam: Clear to Ausculation Bilateral - Cardiovascular Exam Cardiovascular Exam: REGULAR RHYTHM, +S1, +S2 - GI/Abdominal Exam GI & Abdominal Exam: Normal Bowel Sounds - Extremities Exam Extremities Exam: Normal Inspection - Neurological Exam Neurological Exam: Alert, Altered, Awake - Psychiatric Exam Psychiatric exam: Anxious, Flat Affect - Skin Skin Exam: Normal Color Assessment and Plan (1) Anxiety Status: Acute (2) Dementia Status: Chronic (3) Depression Status: Chronic (4) Dyslipidemia Status: Chronic (5) Hydrocephalus Status: Chronic (6) Neuropathy Status: Chronic (7) S/P shoulder replacement Status: Chronic (8) Syncope Status: Resolved (9) Debility Status: Acute
[2018-11-04] MEDS: Insulin Regular 100 units/ml SC SCH ×4 (06:58→21:20)
[2018-11-04] MEDS: Calcium-Vit D 500 mg-200 Units Tab UD PO SCH ×2 (10:07→17:20)
[2018-11-04] MEDS: Cholecalciferol 400 Intl Units Tab PO SCH ×2 (10:08→17:20)
--- NOTE | 2018-11-04 12:59 | CP.PCM.CON ---
History of Present Illness - History of Present Illness History of Present Illness: Podiatry consult note - Dr. Mortensen 78F seen and evaluated at bedside in TCU for elongated painful nails. States that she has not had her nails cut in a while and they are catching on her clothes and bedsheets and causing her much discomfort. States she has not noticed any drainage or bleeding from nails and denies any pain to the toes or feet. Denies n/v/f/c and has no other pedal complaints today. PMHx: baseline dementia, DM, HLD PSHx: patient denies All: NKDA Past Patient History - Infectious Disease Hx of Infectious Diseases: None - Tetanus Immunizations Tetanus Immunization: Unknown - Past Medical History & Family History Past Medical History?: Yes - Past Social History Smoking Status: Never Smoked Chewing Tobacco Use: No Cigar Use: No Occupation: retired Alcohol: None Drugs: Denies Home Situation {Lives}: With Family () Domestic Violence: Negative - CARDIAC Hx Hypercholesterolemia: Yes - PULMONARY Hx Respiratory Disorders: No Other/Comment: NPH - NEUROLOGICAL Hx Dementia: Yes - HEENT Hx HEENT Problems: No - RENAL Hx Chronic Kidney Disease: No - ENDOCRINE/METABOLIC Hx Endocrine Disorders: Yes Hx Diabetes Mellitus Type 2: Yes - HEMATOLOGICAL/ONCOLOGICAL Hx AIDS: No Hx Human Immunodeficiency Virus (HIV): No - INTEGUMENTARY Hx Dermatological Problems: No - MUSCULOSKELETAL/RHEUMATOLOGICAL Hx Musculoskeletal Disorders: No Hx Falls: Yes - GASTROINTESTINAL Hx Gastrointestinal Disorders: No - GENITOURINARY/GYNECOLOGICAL Hx Genitourinary Disorders: No - PSYCHIATRIC Hx Anxiety: Yes Hx Substance Use: No - SURGICAL HISTORY Hx Surgeries: Yes Hx Joint Replacement: Yes (right Total shoulder replacement) Hx Orthopedic Surgery: Yes (CARPAL TUNNEL) Other/Comment: COLONOSCOPY - ANESTHESIA Hx Anesthesia: Yes Hx Anesthesia Reactions: No Hx Malignant Hyperthermia: No Meds Allergies/Adverse Reactions: Allergies Allergy/AdvReac Type Severity Reaction Status Date / Time No Known Allergies Allergy Verified 11/01/18 16:04 - Medications Medications: Current Medications Atorvastatin Calcium (Lipitor) 40 mg PO DAILY [facility] Last Admin: 11/04/18 10:06 Dose: 40 mg Calcium/Vitamin D (Oyster Shell Calcium/Vitamin D 500 Mg-200 Iu) 1 tab PO BID [facility] Last Admin: 11/04/18 10:07 Dose: 1 tab Cyanocobalamin (Vitamin B12 1000 Mcg Tab) 1,000 mcg PO DAILY [facility] Last Admin: 11/04/18 10:08 Dose: 1,000 mcg Folic Acid (Folic Acid) 1 mg PO DAILY [facility] Last Admin: 11/04/18 10:06 Dose: 1 mg Insulin Human Regular (Humulin R) 0 units SC [facility]; Protocol Last Admin: 11/04/18 11:57 Dose: 3 u Loratadine (Claritin) 10 mg PO [facility] Last Admin: 11/03/18 21:56 Dose: 10 mg Memantine (Namenda) 5 mg PO DAILY [facility] Last Admin: 11/04/18 10:07 Dose: 5 mg Metformin HCl (Glucophage) 500 mg PO DAILY [facility] Last Admin: 11/04/18 10:06 Dose: 500 mg Quetiapine Fumarate (Seroquel) 25 mg PO [facility] Last Admin: 11/03/18 21:57 Dose: 25 mg Thiamine HCl (Vitamin B1 Tab) 100 mg PO DAILY [facility] Last Admin: 11/04/18 10:08 Dose: 100 mg Vitamin D (Vitamin D 400 Intl Units Tab) 400 intlu PO BID [facility] Last Admin: 11/04/18 10:08 Dose: 400 intlu Physical Exam - Constitutional Appears: Non-toxic - Head Exam Head Exam: ATRAUMATIC - Extremities Exam Additional comments: B/l LE exam VASC: DP and PT pulses mildly palpalbe; cap refill <3 seconds to all digits; temp gradient wnl; mild edema noted b/l DERM: no open lesions or wounds; nails are elongated and dystrophic at all digits ORTHO: mild discomfort and tenderness on palpation to nail plates NEURO: gross and protective sensation slightly diminished - Neurological Exam Neurological exam: Alert - Psychiatric Exam Psychiatric exam: Normal Affect Results - Vital Signs Recent Vital Signs: Last Vital Signs Temp 97.6 F 11/04/18 07:39 Pulse 68 11/04/18 07:39 Resp 20 11/04/18 07:39 BP 101/76 11/04/18 07:39 Pulse Ox 95 11/04/18 07:39 - Labs Result Diagrams: 11/03/18 05:40 11/03/18 05:40 Labs: Laboratory Results - last 24 hr 11/03/18 11/03/18 11/04/18 16:00 20:54 05:14 POC Glucose (mg/dL) 123 H 165 H 152 H 11/04/18 10:50 POC Glucose (mg/dL) 285 H Assessment & Plan - Assessment and Plan (Free Text) Assessment: 78F with elongated and dystophic toenails Plan: Patient seen and evaluated Discussed with Dr. Mortensen Patient refuses nails to be cut and does not want to be seen by podiatry No intervention performed Please reconsult if any acute problems present Thank you - Date & Time Date: 11/04/18 Time: 13:02
--- NOTE | 2018-11-04 20:12 | CP.PCM.PN ---
Subjective - Date & Time of Evaluation Date of Evaluation: 11/04/18 Time of Evaluation: 20:11 - Subjective Subjective: Not in distress comfortable Objective - Vital Signs/Intake and Output Vital Signs (last 24 hours): Temp Pulse Resp BP Pulse Ox 98.5 F 81 20 121/64 97 11/04/18 19:36 11/04/18 19:36 11/04/18 19:36 11/04/18 19:36 11/04/18 19:36 - Medications Medications: Current Medications Atorvastatin Calcium (Lipitor) 40 mg PO DAILY [facility] Last Admin: 11/04/18 10:06 Dose: 40 mg Calcium/Vitamin D (Oyster Shell Calcium/Vitamin D 500 Mg-200 Iu) 1 tab PO BID [facility] Last Admin: 11/04/18 17:20 Dose: 1 tab Cyanocobalamin (Vitamin B12 1000 Mcg Tab) 1,000 mcg PO DAILY [facility] Last Admin: 11/04/18 10:08 Dose: 1,000 mcg Folic Acid (Folic Acid) 1 mg PO DAILY [facility] Last Admin: 11/04/18 10:06 Dose: 1 mg Potassium Chloride/Dextrose/Sod Cl (Potassium Chl 20 Meq In D5-1/2ns) 1,000 mls @ 60 mls/hr IV .[id number] [facility] Insulin Human Regular (Humulin R) 0 units SC [facility]; Protocol Last Admin: 11/04/18 17:19 Dose: Not Given Loratadine (Claritin) 10 mg PO [facility] Last Admin: 11/03/18 21:56 Dose: 10 mg Memantine (Namenda) 5 mg PO DAILY [facility] Last Admin: 11/04/18 10:07 Dose: 5 mg Metformin HCl (Glucophage) 500 mg PO DAILY [facility] Last Admin: 11/04/18 10:06 Dose: 500 mg Quetiapine Fumarate (Seroquel) 25 mg PO HS [facility] Last Admin: 11/03/18 21:57 Dose: 25 mg Thiamine HCl (Vitamin B1 Tab) 100 mg PO DAILY [facility] Last Admin: 11/04/18 10:08 Dose: 100 mg Vitamin D (Vitamin D 400 Intl Units Tab) 400 intlu PO BID [facility] Last Admin: 11/04/18 17:20 Dose: 400 intlu - Labs Labs: 11/03/18 05:40 11/03/18 05:40 PT 10.7 Seconds (9.8-13.1) 11/03/18 05:40 INR 0.9 11/03/18 05:40 APTT 32.7 Seconds (25.6-37.1) 11/03/18 05:40 - Constitutional Appears: Confused, Chronically Ill - Head Exam Head Exam: ATRAUMATIC, NORMAL INSPECTION, NORMOCEPHALIC - Eye Exam Eye Exam: Normal appearance - ENT Exam ENT Exam: Normal Exam - Neck Exam Neck Exam: Full ROM - Respiratory Exam Respiratory Exam: Clear to Ausculation Bilateral - Cardiovascular Exam Cardiovascular Exam: REGULAR RHYTHM, +S1, +S2 - GI/Abdominal Exam GI & Abdominal Exam: Normal Bowel Sounds - Extremities Exam Extremities Exam: Normal Inspection - Neurological Exam Neurological Exam: Alert, Altered, Awake - Psychiatric Exam Psychiatric exam: Depressed, Flat Affect - Skin Skin Exam: Normal Color Assessment and Plan (1) Anxiety Status: Acute (2) Dementia Status: Chronic (3) Depression Status: Chronic (4) Dyslipidemia Status: Chronic (5) Hydrocephalus Status: Chronic (6) Neuropathy Status: Chronic (7) S/P shoulder replacement Status: Chronic (8) Syncope Status: Resolved (9) Debility Status: Acute
[2018-11-05] MEDS: Insulin Regular 100 units/ml SC SCH ×3 (06:42→21:09)
[2018-11-05] MEDS: Cholecalciferol 400 Intl Units Tab PO SCH ×3 (08:30→17:10)
[2018-11-05] MEDS: Calcium-Vit D 500 mg-200 Units Tab UD PO SCH ×2 (09:07→17:07)
--- NOTE | 2018-11-05 11:49 | CP.PCM.PN ---
Subjective - Date & Time of Evaluation Date of Evaluation: 11/05/18 Time of Evaluation: 11:49 - Subjective Subjective: Neuro Follow-Up Note: Mrs. Mayberry was evaluated this morning in the TCU at bedside. No family present. Today she states that she feels better and appears comfortable. She admits to improvements in the pain she was experiencing in her legs. She is tolerating PT. She is for EXTRUSION DIE REPAIR MANAGER shunt placement on 11/09/18, at [facility]. Has baseline dementia. Currently denies h/a, dizziness, visual changes, chest pain, sob, abd pain, paresthesias. Objective - Vital Signs/Intake and Output Vital Signs (last 24 hours): Temp Pulse Resp BP Pulse Ox 98.5 F 81 20 121/64 97 11/04/18 19:36 11/04/18 19:36 11/04/18 19:36 11/04/18 19:36 11/04/18 19:36 - Medications Medications: Current Medications Atorvastatin Calcium (Lipitor) 40 mg PO DAILY [facility] Last Admin: 11/05/18 09:07 Dose: 40 mg Calcium/Vitamin D (Oyster Shell Calcium/Vitamin D 500 Mg-200 Iu) 1 tab PO BID [facility] Last Admin: 11/05/18 09:07 Dose: 1 tab Cyanocobalamin (Vitamin B12 1000 Mcg Tab) 1,000 mcg PO DAILY [facility] Last Admin: 11/05/18 09:06 Dose: 1,000 mcg Folic Acid (Folic Acid) 1 mg PO DAILY [facility] Last Admin: 11/05/18 09:06 Dose: 1 mg Potassium Chloride/Dextrose/Sod Cl (Potassium Chl 20 Meq In D5-1/2ns) 1,000 mls @ 60 mls/hr IV .[id number] [facility] Insulin Human Regular (Humulin R) 0 units SC ACHS [facility]; Protocol Last Admin: 11/05/18 06:42 Dose: Not Given Loratadine (Claritin) 10 mg PO [facility] Last Admin: 11/04/18 21:19 Dose: 10 mg Memantine (Namenda) 5 mg PO DAILY [facility] Last Admin: 11/05/18 09:07 Dose: 5 mg Metformin HCl (Glucophage) 500 mg PO DAILY [facility] Last Admin: 11/05/18 09:07 Dose: 500 mg Quetiapine Fumarate (Seroquel) 25 mg PO HS [facility] Last Admin: 11/04/18 21:19 Dose: 25 mg Thiamine HCl (Vitamin B1 Tab) 100 mg PO DAILY [facility] Last Admin: 11/05/18 09:06 Dose: 100 mg Vitamin D (Vitamin D 400 Intl Units Tab) 400 intlu PO BID [facility] Last Admin: 11/05/18 09:06 Dose: 400 intlu - Labs Labs: 11/03/18 05:40 11/03/18 05:40 PT 10.7 Seconds (9.8-13.1) 11/03/18 05:40 INR 0.9 11/03/18 05:40 APTT 32.7 Seconds (25.6-37.1) 11/03/18 05:40 - Constitutional Appears: Well, Non-toxic, No Acute Distress, Confused (baseline dementia) - Head Exam Head Exam: ATRAUMATIC, NORMAL INSPECTION, NORMOCEPHALIC - Eye Exam Eye Exam: EOMI, Normal appearance, PERRL Pupil Exam: NORMAL ACCOMODATION, PERRL - ENT Exam ENT Exam: Mucous Membranes Moist - Neck Exam Neck Exam: Full ROM, Normal Inspection - Respiratory Exam Respiratory Exam: NORMAL BREATHING PATTERN - Extremities Exam Extremities Exam: Full ROM. absent: Calf Tenderness, Pedal Edema Additional comments: Still has generalized weakness to BLE - Neurological Exam Neurological Exam: Alert, Altered, Awake, CN II-XII Intact Neuro motor strength exam: Left Upper Extremity: 4 (distal 3/5), Right Upper Extremity: 4 (distal 3/5), Left Lower Extremity: 3 (distal 3/5), Right Lower Extremity: 3 (distal 3/5) Additional comments: Speech clear, fluid Awake and alert; has baseline dementia. Generalized weakness to BLE continues. No sensory deficits. No tremors or abnormal movements Gait not assessed. - Psychiatric Exam Additional comments: has baseline dementia; calm and cooperative, comfortable. - Skin Skin Exam: Dry, Intact Additional comments: bruises noted to left forearm, healing Assessment and Plan (1) Normal pressure hydrocephalus Assessment & Plan: Imaging reviewed: -Repeat CT Head (11/04/18): Stable ventricular dilatation. Stable atrophy and periventricular small vessel disease. -CT Head (10/26/18): No acute intracranial abnormality. Mild chronic microangiopathic changes and mild age-related global parenchymal volume loss. Ventricular dilatation is out of proportion to sulcal prominence and normal pressure hydrocephalus should be considered. Clinical follow-up is advised. -Pending EXTRUSION DIE REPAIR MANAGER shunt placement procedure with neurosurgery at [facility] on 11/09/18. Will defer management of NPH to neurosurgical team. -Continue to hold ASA for surgery. -I have ordered the following: Pre-op labs, NPO after midnight on 11/09/18, IVFs (D5 1/2 NS with 20 meq KCL to infuse at 60 ml/ hour) ordered to begin at the time of NPO. Will defer further pre-op orders to neurosurgical team. -Notify neuro team of any acute changes in pt's condition prior to transfer to [facility]. Minnie Tello, PARVEEN, BLOCK HANDLER d/w Dr. Allen Status: Acute
--- NOTE | 2018-11-05 12:18 | CP.PCM.PN ---
Subjective - Date & Time of Evaluation Date of Evaluation: 11/05/18 Time of Evaluation: 12:18 - Subjective Subjective: Comfortable Objective - Vital Signs/Intake and Output Vital Signs (last 24 hours): Temp Pulse Resp BP Pulse Ox 98.1 F 76 20 122/74 96 11/05/18 12:11 11/05/18 12:11 11/05/18 12:11 11/05/18 12:11 11/05/18 12:11 - Medications Medications: Current Medications Atorvastatin Calcium (Lipitor) 40 mg PO DAILY [facility] Last Admin: 11/05/18 09:07 Dose: 40 mg Calcium/Vitamin D (Oyster Shell Calcium/Vitamin D 500 Mg-200 Iu) 1 tab PO BID [facility] Last Admin: 11/05/18 09:07 Dose: 1 tab Cyanocobalamin (Vitamin B12 1000 Mcg Tab) 1,000 mcg PO DAILY [facility] Last Admin: 11/05/18 09:06 Dose: 1,000 mcg Folic Acid (Folic Acid) 1 mg PO DAILY [facility] Last Admin: 11/05/18 09:06 Dose: 1 mg Potassium Chloride/Dextrose/Sod Cl (Potassium Chl 20 Meq In D5-1/2ns) 1,000 mls @ 60 mls/hr IV .[id number] [facility] Insulin Human Regular (Humulin R) 0 units SC [facility] ON LICENSE OF [facility]; Protocol Last Admin: 11/05/18 06:42 Dose: Not Given Loratadine (Claritin) 10 mg PO [facility] Last Admin: 11/04/18 21:19 Dose: 10 mg Memantine (Namenda) 5 mg PO DAILY [facility] Last Admin: 11/05/18 09:07 Dose: 5 mg Metformin HCl (Glucophage) 500 mg PO DAILY [facility] Last Admin: 11/05/18 09:07 Dose: 500 mg Quetiapine Fumarate (Seroquel) 25 mg PO HS [facility] Last Admin: 11/04/18 21:19 Dose: 25 mg Thiamine HCl (Vitamin B1 Tab) 100 mg PO DAILY [facility] Last Admin: 11/05/18 09:06 Dose: 100 mg Vitamin D (Vitamin D 400 Intl Units Tab) 400 intlu PO BID [facility] Last Admin: 11/05/18 09:06 Dose: 400 intlu - Labs Labs: 11/03/18 05:40 11/03/18 05:40 PT 10.7 Seconds (9.8-13.1) 11/03/18 05:40 INR 0.9 11/03/18 05:40 APTT 32.7 Seconds (25.6-37.1) 11/03/18 05:40 - Constitutional Appears: Confused, Chronically Ill - Head Exam Head Exam: ATRAUMATIC, NORMAL INSPECTION, NORMOCEPHALIC - Eye Exam Eye Exam: Normal appearance - ENT Exam ENT Exam: Normal Exam - Neck Exam Neck Exam: Full ROM - Respiratory Exam Respiratory Exam: Clear to Ausculation Bilateral - Cardiovascular Exam Cardiovascular Exam: REGULAR RHYTHM, +S1, +S2 - GI/Abdominal Exam GI & Abdominal Exam: Soft, Normal Bowel Sounds - Neurological Exam Neurological Exam: Alert, Altered, Awake - Psychiatric Exam Psychiatric exam: Depressed, Flat Affect - Skin Skin Exam: Normal Color Assessment and Plan (1) Anxiety Status: Acute (2) Dementia Status: Chronic (3) Depression Status: Chronic (4) Dyslipidemia Status: Chronic (5) Hydrocephalus Status: Chronic (6) Neuropathy Status: Chronic (7) S/P shoulder replacement Status: Chronic (8) Syncope Status: Resolved (9) Debility Status: Acute
[2018-11-06] MEDS: Insulin Regular 100 units/ml SC SCH ×2 (06:43→23:13)
[2018-11-07] MEDS: Insulin Regular 100 units/ml SC SCH ×3 (07:00→22:02)
[2018-11-07] MEDS: Calcium-Vit D 500 mg-200 Units Tab UD PO SCH ×2 (11:41→22:01)
[2018-11-07 12:02] LABS: SQUAMOUS EPITHIAL 2 /hpf (0-5); URINE BACTERIA RARE (<OCC); URINE BILIRUBIN NEGATIVE (NEGATIVE); URINE BLOOD NEGATIVE (NEGATIVE); URINE CLARITY SLIGHTY-CLOUDY (Clear); URINE COLOR YELLOW (YELLOW); URINE GLUCOSE (UA) NEG (NEGATIVE); URINE LEUKOCYTE ESTERASE SMALL Leu/uL (Negative); URINE PROTEIN NEGATIVE (NEGATIVE); URINE UROBILINOGEN 0.2-1.0 mg/dL (0.2-1.0)
[2018-11-07] MEDS: Cholecalciferol 400 Intl Units Tab PO SCH (12:47)
[2018-11-08 01:35] VITALS: RESP 20
[2018-11-08] MEDS: Insulin Regular 100 units/ml SC SCH ×5 (07:07→21:56)
[2018-11-08 07:44] LABS: PROTHROMBIN TIME 12.1 Seconds (9.8-13.1)
[2018-11-08 07:47] LABS: PARTIAL THROMBOPLASTIN TIME 30.7 Seconds (25.6-37.1)
[2018-11-08 08:00] LABS: HEMOGLOBIN 12.5 g/dL (12.0-16.0); MEAN CELL VOLUME 77.4 fl (81.0-99.0); MEAN CORPUSCULAR HEMOGLOBIN 25.4 pg (27.0-31.0); MEAN CORPUSCULAR HGB CONC 32.7 g/dL (33.0-37.0); RBC 4.92 Mil/uL (3.80-5.20); RED CELL DISTRIBUTION WIDTH 14.2 % (11.5-14.5); WHITE BLOOD COUNT 7.7 K/uL (4.8-10.8)
[2018-11-08 08:05] LABS: ALB/GLOB RATIO 1.3 (1.0-2.1); ALBUMIN 4.5 g/dL (3.5-5.0); ALT/SGPT 32 U/L (9-52); AST/SGOT 31 U/L (14-36); BLOOD UREA NITROGEN 30 mg/dl (7-17); CALCIUM 10.1 mg/dL (8.4-10.2); GFR NON-AFRICAN AMERICAN 54
[2018-11-08] MEDS: Cholecalciferol 400 Intl Units Tab PO SCH ×2 (08:22→16:08)
[2018-11-08] MEDS: Calcium-Vit D 500 mg-200 Units Tab UD PO SCH ×2 (08:22→16:07)
--- NOTE | 2018-11-08 12:26 | CP.PCM.PN ---
Subjective - Date & Time of Evaluation Date of Evaluation: 11/08/18 Time of Evaluation: 12:26 - Subjective Subjective: Comfortable no in distress. Objective - Vital Signs/Intake and Output Vital Signs (last 24 hours): Temp Pulse Resp BP Pulse Ox 97.9 F 82 20 111/66 96 11/08/18 08:27 11/08/18 08:27 11/08/18 08:27 11/08/18 08:27 11/08/18 08:27 - Medications Medications: Current Medications Atorvastatin Calcium (Lipitor) 40 mg PO DAILY [facility] Last Admin: 11/08/18 08:22 Dose: 40 mg Calcium/Vitamin D (Oyster Shell Calcium/Vitamin D 500 Mg-200 Iu) 1 tab PO BID [facility] Last Admin: 11/08/18 08:22 Dose: 1 tab Cyanocobalamin (Vitamin B12 1000 Mcg Tab) 1,000 mcg PO DAILY [facility] Last Admin: 11/08/18 08:23 Dose: 1,000 mcg Folic Acid (Folic Acid) 1 mg PO DAILY [facility] Last Admin: 11/08/18 08:22 Dose: 1 mg Potassium Chloride/Dextrose/Sod Cl (Potassium Chl 20 Meq In D5-1/2ns) 1,000 mls @ 60 mls/hr IV .[id number] [facility] Insulin Human Regular (Humulin R) [address] [facility]; Protocol Last Admin: 11/08/18 11:39 Dose: 1 u Loratadine (Claritin) 10 mg PO [facility] Last Admin: 11/07/18 22:00 Dose: 10 mg Memantine (Namenda) 5 mg PO DAILY [facility] Last Admin: 11/08/18 08:23 Dose: 5 mg Metformin HCl (Glucophage) 500 mg PO DAILY [facility] Last Admin: 11/08/18 08:22 Dose: 500 mg Quetiapine Fumarate (Seroquel) 25 mg PO HS [facility] Last Admin: 11/07/18 21:55 Dose: 25 mg Thiamine HCl (Vitamin B1 Tab) 100 mg PO DAILY [facility] Last Admin: 11/08/18 08:23 Dose: 100 mg Vitamin D (Vitamin D 400 Intl Units Tab) 400 intlu PO BID [facility] Last Admin: 11/08/18 08:22 Dose: 400 intlu - Labs Labs: 11/08/18 07:15 11/08/18 07:15 PT 12.1 Seconds (9.8-13.1) 11/08/18 07:15 INR 1.0 11/08/18 07:15 APTT 30.7 Seconds (25.6-37.1) 11/08/18 07:15 - Constitutional Appears: Confused, Chronically Ill - Head Exam Head Exam: ATRAUMATIC, NORMAL INSPECTION, NORMOCEPHALIC - Eye Exam Eye Exam: Normal appearance - Respiratory Exam Respiratory Exam: Clear to Ausculation Bilateral - Cardiovascular Exam Cardiovascular Exam: REGULAR RHYTHM, +S1, +S2 - GI/Abdominal Exam GI & Abdominal Exam: Soft, Normal Bowel Sounds - Extremities Exam Extremities Exam: Normal Inspection - Neurological Exam Neurological Exam: Alert, Altered, Awake - Psychiatric Exam Psychiatric exam: Depressed, Flat Affect - Skin Skin Exam: Normal Color Assessment and Plan (1) Anxiety Status: Acute (2) Dementia Status: Chronic (3) Depression Status: Chronic (4) Dyslipidemia Status: Chronic (5) Hydrocephalus Status: Chronic (6) Neuropathy Status: Chronic (7) S/P shoulder replacement Status: Chronic (8) Syncope Status: Resolved (9) Debility Status: Acute
[2018-11-09] MEDS ORDERED: Potassium Ch 20mEq in D5-1/2NS 1,000 ML IV SCH
--- NOTE | 2018-11-09 06:35 | CP.PCM.DIS ---
Provider - Provider Date of Admission: 11/01/18 16:50 Attending physician: Jim Broussard MD Consults: 11/01/18 17:00 Podiatry Consult Routine Comment: Consulting Provider: Dickson Mortensen Consulting Physician: Dickson Mortensen Reason for Consult: toe nail trim 11/01/18 17:01 Neuro Surgery Consult Routine Comment: Consulting Provider: Ridge Ohara Consulting Physician: Ridge Ohara Reason for Consult: NPH Neurology Consult Routine Comment: Consulting Provider: Josef Gentile Consulting Physician: Josef Gentile Reason for Consult: syncopal 11/01/18 17:06 Case Management Referral Routine Comment: Physician Instructions: Reason For Exam: Reason for Referral: Discharge Planning 11/01/18 18:09 Nursing Referral for Wound Care Routine Comment: Physician Instructions: Reason For Exam: left groin rash Time Spent in preparation of Discharge (in minutes): 30 Diagnosis - Discharge Diagnosis (1) Anxiety Status: Acute (2) Dementia Status: Chronic (3) Depression Status: Chronic (4) Dyslipidemia Status: Chronic (5) Hydrocephalus Status: Chronic (6) Neuropathy Status: Chronic (7) S/P shoulder replacement Status: Chronic (8) Syncope Status: Resolved (9) Debility Status: Acute Hospital Course - Lab Results Lab Results: Most Recent Lab Values WBC 7.7 K/uL (4.8-10.8) 11/08/18 07:15 RBC 4.92 Mil/uL (3.80-5.20) 11/08/18 07:15 Hgb 12.5 g/dL (12.0-16.0) 11/08/18 07:15 Hct 38.1 % (34.0-47.0) 11/08/18 07:15 MCV 77.4 fl (81.0-99.0) L 11/08/18 07:15 MCH 25.4 pg (27.0-31.0) L 11/08/18 07:15 MCHC 32.7 g/dL (33.0-37.0) L 11/08/18 07:15 RDW 14.2 % (11.5-14.5) 11/08/18 07:15 Plt Count 281 K/uL (130-400) 11/08/18 07:15 MPV 8.5 fl (7.2-11.7) 11/03/18 05:40 Neut % (Auto) 46.4 % (50.0-75.0) L 11/03/18 05:40 Lymph % (Auto) 41.4 % (20.0-40.0) H 11/03/18 05:40 [place] % (Auto) 9.3 % (0.0-10.0) 11/03/18 05:40 Eos % (Auto) 1.7 % (0.0-4.0) 11/03/18 05:40 Baso % (Auto) 1.2 % (0.0-2.0) 11/03/18 05:40 Neut # (Auto) 3.7 K/uL (1.8-7.0) 11/03/18 05:40 Lymph # (Auto) 3.3 K/uL (1.0-4.3) 11/03/18 05:40 [place] # (Auto) 0.7 K/uL (0.0-0.8) 11/03/18 05:40 Eos # (Auto) 0.1 K/uL (0.0-0.7) 11/03/18 05:40 Baso # (Auto) 0.1 K/uL (0.0-0.2) 11/03/18 05:40 PT 12.1 Seconds (9.8-13.1) 11/08/18 07:15 INR 1.0 11/08/18 07:15 APTT 30.7 Seconds (25.6-37.1) 11/08/18 07:15 Sodium 139 mmol/l (132-148) 11/08/18 07:15 Potassium 4.3 MMOL/L (3.6-5.0) 11/08/18 07:15 Chloride 102 mmol/L (98-107) 11/08/18 07:15 Carbon Dioxide 29 mmol/L (22-30) 11/08/18 07:15 Anion Gap 12 (10-20) 11/08/18 07:15 BUN 30 mg/dl (7-17) H 11/08/18 07:15 Creatinine 1.0 mg/dl (0.7-1.2) 11/08/18 07:15 Est GFR ( Amer) > 60 11/08/18 07:15 Est GFR (Non-Af Amer) 54 11/08/18 07:15 POC Glucose (mg/dL) 128 mg/dL (65-110) H 11/09/18 06:15 Random Glucose 130 mg/dL (65-105) H 11/08/18 07:15 Calcium 10.1 mg/dL (8.4-10.2) 11/08/18 07:15 Total Bilirubin 0.4 mg/dl (0.2-1.3) 11/08/18 07:15 Direct Bilirubin 0.3 mg/ml (0.0-0.4) 11/03/18 05:40 AST 31 U/L (14-36) 11/08/18 07:15 ALT 32 U/L (9-52) 11/08/18 07:15 Alkaline Phosphatase 145 U/L (38-126) H D 11/08/18 07:15 Total Protein 8.0 G/DL (6.3-8.2) 11/08/18 07:15 Albumin 4.5 g/dL (3.5-5.0) 11/08/18 07:15 Globulin 3.5 gm/dL (2.2-3.9) 11/08/18 07:15 Albumin/Globulin Ratio 1.3 (1.0-2.1) 11/08/18 07:15 Urine Color Yellow (YELLOW) 11/07/18 11:46 Urine Clarity Slighty-cloudy (Clear) 11/07/18 11:46 Urine pH 5.0 (5.0-8.0) 11/07/18 11:46 Ur Specific [place] 1.024 (1.003-1.030) 11/07/18 11:46 Urine Protein Negative mg/dL (NEGATIVE) 11/07/18 11:46 Urine Glucose (UA) Neg mg/dL (NEGATIVE) 11/07/18 11:46 Urine Ketones Negative mg/dL (NEGATIVE) 11/07/18 11:46 Urine Blood Negative (NEGATIVE) 11/07/18 11:46 Urine Nitrate Negative (NEGATIVE) 11/07/18 11:46 Urine Bilirubin Negative (NEGATIVE) 11/07/18 11:46 Urine Urobilinogen 0.2-1.0 mg/dL (0.2-1.0) 11/07/18 11:46 Ur Leukocyte Esterase Small Sai/uL (Negative) 11/07/18 11:46 Urine RBC (Auto) 3 /hpf (0-3) 11/07/18 11:46 Urine Microscopic WBC 8 /hpf (0-5) H 11/07/18 11:46 Ur Squamous Epith Cells 2 /hpf (0-5) 11/07/18 11:46 Urine Bacteria Rare (<OCC) 11/07/18 11:46 - Hospital Course Hospital Course: 78 yo female with dementia at baseline, brought to ER by daughter for evaluation after patient was found on the floor next to her bed last night by her . As per daughter patient was down for an unknown amount of time. She states the patient was awake when found on the floor. She has new onset of severe lower limb weakness, incontinence and worse mental status. She underwent to PT. Patient with hydrocephalus for surgery today. She is cleared for surgical intervention. Discharge Exam - Head Exam Head Exam: ATRAUMATIC, NORMAL INSPECTION, NORMOCEPHALIC - Eye Exam Eye Exam: Normal appearance - ENT Exam ENT Exam: Normal Exam - Neck Exam Neck exam: Full Rom - Respiratory Exam Respiratory Exam: Clear to PA & Lateral - Cardiovascular Exam Cardiovascular Exam: REGULAR RHYTHM, +S1, +S2 - GI/Abdominal Exam GI & Abdominal Exam: Normal Bowel Sounds - Extremities Exam Extremities exam: normal inspection - Neurological Exam Neurological exam: Alert, Altered, CN II-XII Intact - Psychiatric Exam Psychiatric exam: Depressed, Flat Affect - Skin Skin Exam: Normal Color Discharge Plan - Follow Up Plan Condition: GOOD Disposition: OTHER INSTITUTION
[2018-11-09] MEDS: Insulin Regular 100 units/ml SC SCH (06:36)
[2018-11-09 07:47] VITALS: BP 101/59; PULSE 67; TEMP 97.9; O2SAT 96
[2018-11-09] MEDS: Calcium-Vit D 500 mg-200 Units Tab UD PO SCH (08:09)
[2018-11-09] MEDS: Cholecalciferol 400 Intl Units Tab PO SCH (08:09)
== END 2018-11-09 08:45 | disposition short-term general hospital (02) | DRG 57 ==
LOC: H.TCU 16:50
PROVIDERS: ADMIT Internal Medicine; ATTEND Internal Medicine
PROC: F07Z9FZ Gait Training/Functional Ambulation Treatment using Assistive, Adaptive, Supportive or Protective Equipment (ICD-10-PCS; principal; 2018-11-01)
PROC: F07Z8FZ Transfer Training Treatment using Assistive, Adaptive, Supportive or Protective Equipment (ICD-10-PCS; 2018-11-01)
PROC: F08Z2FZ Grooming/Personal Hygiene Treatment using Assistive, Adaptive, Supportive or Protective Equipment (ICD-10-PCS; 2018-11-01)
PROC: F08Z1FZ Dressing Techniques Treatment using Assistive, Adaptive, Supportive or Protective Equipment (ICD-10-PCS; 2018-11-01)
PROC: F08Z0FZ Bathing/Showering Techniques Treatment using Assistive, Adaptive, Supportive or Protective Equipment (ICD-10-PCS; 2018-11-01)
PROC: F07L6GZ Therapeutic Exercise Treatment of Musculoskeletal System - Lower Back / Lower Extremity using Aerobic Endurance and Conditioning Equipment (ICD-10-PCS; 2018-11-01)
DX: G91.2 (Idiopathic) normal pressure hydrocephalus (principal); E78.00 Pure hypercholesterolemia, unspecified; E78.5 Hyperlipidemia, unspecified; F03.90 Unspecified dementia, unspecified severity, without behavioral disturbance, psychotic disturbance, mood disturbance, and anxiety; Z96.611 Presence of right artificial shoulder joint; F41.9 Anxiety disorder, unspecified; F32.9 Major depressive disorder, single episode, unspecified; R53.81 Other malaise; R53.1 Weakness; R32 Unspecified urinary incontinence; E11.9 Type 2 diabetes mellitus without complications; L60.3 Nail dystrophy; G62.9 Polyneuropathy, unspecified